=== PATIENT | female | born 1945 | race Caucasian/White ===

== ENCOUNTER 2018-01-07 09:43 | Emergency (ER) | payer MEDICARE ==
[~2018-01-07] VITALS: Ht 165.1 cm; Wt 86.2 kg
[~2018-01-07 09:43] MED LIST: ATOR10 PO; Aspir 8181 MG PO; Calci-Chew500 MG PO; Cholest Off450 MG PO; ERGO400; FENO145 PO; FISH1000; LEVSOD100 PO; LISHYD2012 PO; LISI5 PO; LOVA20 PO; Multiple Vitam1 EAC1; RANI150 PO; Synthroid112 MCG PO; Vitamin C1000 M1 PO
== END 2018-01-07 16:49 | disposition home or self-care (01) ==
LOC: ER 09:43
DX: T18.128A Food in esophagus causing other injury, initial encounter (principal); I10 Essential (primary) hypertension; E78.5 Hyperlipidemia, unspecified; Z79.899 Other long term (current) drug therapy; Z85.21 Personal history of malignant neoplasm of larynx; Z90.89 Acquired absence of other organs
CPT/HCPCS: 99283; J1430; J7030

== ENCOUNTER → 2018-11-10 | Outpatient (CLI) | payer MEDICARE | END | disposition home or self-care (01) | LOC: LAB 13:16 → LAB SHORT 13:16 | DX: R91.8 Other nonspecific abnormal finding of lung field (principal) | CPT/HCPCS: 87015; 87070; 87077; 87102; 87116; 87186; 87205; 87206 ==

== ENCOUNTER → 2018-11-11 | Outpatient (CLI) | payer MEDICARE | END | disposition home or self-care (01) | LOC: LAB 11:58 → LAB SHORT 11:58 | DX: R91.8 Other nonspecific abnormal finding of lung field (principal) | CPT/HCPCS: 87015; 87070; 87102; 87106; 87116; 87205; 87206 ==

== ENCOUNTER → 2018-11-12 | Outpatient (CLI) | payer MEDICARE | END | disposition home or self-care (01) | LOC: LAB 12:48 → LAB SHORT 12:48 | DX: R91.8 Other nonspecific abnormal finding of lung field (principal) | CPT/HCPCS: 87015; 87070; 87102; 87106; 87116; 87205; 87206 ==

== ENCOUNTER 2019-03-25 09:13 | Day surgery (SDC) | payer MEDICARE ==
--- NOTE | 2019-03-25 11:26 | NUR ---
ARRIVAL TO STEP, AWAKE, ALERT, NO C/O PAIN OR DISCOMFORT. BANDAID TO LEFT CHEST CDI. REPORT RECEIVED FROM KELSEY GRAY.O2 SATS AND VS WNL.
--- NOTE | 2019-03-25 13:20 | NUR ---
4265 KELSEY GRAY AT BEDSIDE GIVING D/C INSTRUCTIONS AFTER 1300 XRAY. IS TO RETURN TOMORROW MORNING FOR FOLLOW UP CHEST XRAY. DISCHARGE INSTRUCTIONS RE-ITERATED AND PATIENT VERBALIZED UNDERSTANDING. LEFT CHEST BANDAID IS CDI. O2 SATS AND VS ARE WNL. HOME WITH FAMILY
--- NOTE | 2019-03-27 14:46 | NUR ---
03/27/19 1446 Jenelle Gutierrez PROCEDURE EDITED FOR PURPOSES OF VERIFICATION.
== END 2019-03-25 13:15 | disposition home or self-care (01) ==
LOC: CT 09:13
DX: C34.12 Malignant neoplasm of upper lobe, left bronchus or lung (principal); Z87.891 Personal history of nicotine dependence
CPT/HCPCS: 32405; 71045; 77012; 88305

== ENCOUNTER 2019-05-15 09:45 | Day surgery (SDC) | payer MEDICARE ==
[~2019-05-15] VITALS: Ht 165.1 cm; Wt 88.0 kg
[~2019-05-15 09:45] MED LIST changes: +EUTHYROX100 MCG PO
--- NOTE | 2019-05-15 13:39 | NUR ---
LEFT RADIAL TR BAND SITE SOFT NON-TENDER WITH NO HEMATOMA AND NO PULSATILE BLEEDING. RIGHT GROIN SITE SOFT NON-TENDER WITH NO HEMATOMA AND NO PULSATILE BLEEDING AND INTACT DRESSING. PT DENIES ANY PAIN; CALL LIGHT IN REACH.
--- NOTE | 2019-05-15 14:06 | NUR ---
DR HINOJOSA IN ROOM TO SEE PT AND AWARE OF HTN.
--- NOTE | 2019-05-15 14:28 | NUR ---
9 CC OF AIR REMOVED OVER 15 MIN FROM NOW DEFLATED LEFT TR BAND; NO HEMATOMA, NO BLEEDING, SOFT AND NON-TENDER.
--- NOTE | 2019-05-15 14:37 | NUR ---
NO CHANGES TO DEFLATED LEFT TR BAND SITE.
--- NOTE | 2019-05-15 16:05 | NUR ---
AMBULATED TO THE BATHROOM. TOLERATED WELL. NO BLEEDING AT RIGHT GROIN. LEFT RADIAL WRIST WITH TR BAND INTACT. DRESSING FOR DISCHARE.
--- NOTE | 2019-05-15 16:15 | NUR ---
TR BAND REMOVED. NO BLEEDING AT SIGHT BUT BRUISED. SITE CLEANED. POLYMEM, IMMOBILIZER AND SLING APPLIED.IV REMOVED INTACT. 2X2, COBAN AND MANUAL PRESSURE APPLIED. DISCHARGE INSTRUCTIONS GIVEN WITH VERBAL AND WRITTEN UNDERSTANDING
--- NOTE | 2019-05-15 16:45 | NUR ---
DISCHARGED HOME VIA [facility].
== END 2019-05-15 16:45 | disposition home or self-care (01) ==
LOC: MHTC 09:45
PROC: B205YZZ Plain Radiography of Left Heart using Other Contrast (ICD-10-PCS; principal; 2019-05-15)
PROC: B201YZZ Plain Radiography of Multiple Coronary Arteries using Other Contrast (ICD-10-PCS; principal; 2019-05-15)
PROC: 4A023N7 Measurement of Cardiac Sampling and Pressure, Left Heart, Percutaneous Approach (ICD-10-PCS; principal; 2019-05-15)
DX: Z01.810 Encounter for preprocedural cardiovascular examination (principal); I11.0 Hypertensive heart disease with heart failure; I50.20 Unspecified systolic (congestive) heart failure; I25.10 Atherosclerotic heart disease of native coronary artery without angina pectoris; I25.82 Chronic total occlusion of coronary artery; I70.8 Atherosclerosis of other arteries; I71.4 Abdominal aortic aneurysm, without rupture; I70.203 Unspecified atherosclerosis of native arteries of extremities, bilateral legs; E11.9 Type 2 diabetes mellitus without complications; E78.5 Hyperlipidemia, unspecified; E03.9 Hypothyroidism, unspecified; C34.90 Malignant neoplasm of unspecified part of unspecified bronchus or lung; Z79.899 Other long term (current) drug therapy; Z87.891 Personal history of nicotine dependence
CPT/HCPCS: 76937; 85347; 93005; 93010; 93458; 99152; 99153; C1769; C1887; C1894; J1644; J2250; J3010; J7030; Q9967

== ENCOUNTER → 2019-08-18 | Outpatient (CLI) | payer MEDICARE ==
[2019-08-18 16:33] LABS: Alanine Aminotransfer (ALT/SGP 63 U/L (12-78); Albumin, Blood 3.6 g/dL (3.4-5.0); Albumin/Globulin Ratio 1.2 (0.8-1.8); Alk Phos 97 U/L (50-136); Anion Gap 8 mmol/L (6-16); Aspartate Aminotrans (AST/SGOT 31 U/L (12-37); Bilirubin, Total 0.6 mg/dL (0.1-1.0); Blood Urea Nitrogen 17 mg/dL (8-24); Bun/Creatinine Ratio 25.6 (12.0-20.0); CO2, Blood 24 mmol/L (21-32); Calcium, Blood 8.3 mg/dL (8.5-10.1); Chloride, Blood 107 mmol/L (98-108); Creatinine, Blood 0.66 mg/dL (0.40-1.00); Globulin, Blood 3.1 g/dL (2.2-4.0); Glomerular Filtration Rate >60 (60-); Glucose, Blood 110 mg/dL (70-99); Sodium, Blood 139 mmol/L (136-145); Total Protein, Blood 6.7 g/dL (6.4-8.2)
== END ==
LOC: LAB 15:11 → LAB SHORT 15:11
PROVIDERS: Registered Nurse Oncology
DX: C34.90 Malignant neoplasm of unspecified part of unspecified bronchus or lung (principal); C77.1 Secondary and unspecified malignant neoplasm of intrathoracic lymph nodes; R94.5 Abnormal results of liver function studies
CPT/HCPCS: 80053

== ENCOUNTER 2019-09-30 10:03 | Day surgery (SDC) | payer MEDICARE ==
[~2019-09-30 10:03] MED LIST changes: -ATOR10 PO; +ATOR80 PO
== END 2019-09-30 22:50 | disposition home or self-care (01) ==
LOC: MOI MAM 10:03
DX: R92.8 Other abnormal and inconclusive findings on diagnostic imaging of breast (principal); R92.1 Mammographic calcification found on diagnostic imaging of breast
CPT/HCPCS: 19081; 88305

== ENCOUNTER 2019-10-22 23:35 | Inpatient (IN) | payer MEDICARE ==
[~2019-10-22] VITALS: Ht 165.1 cm; Wt 76.6 kg
[2019-10-22 23:45] LABS: PCO2 Arterial 49.4 mmHg (35-45); PO2 Arterial 67.9 mmHg (80-100); pH Blood Arterial 7.23 (7.35-7.45)
[2019-10-23 00:25] LABS: BASOPHILS ABSOLUTE AUTO 0.19 K/mm3 (0.00-0.23); BASOPHILS PERCENT AUTO 1 % (0-2); EOSINOPHILS ABSOLUTE AUTO 0.79 K/mm3 (0.00-0.68); EOSINOPHILS PERCENT AUTO 5 % (0-6); Hemoglobin 9.8 g/dL (11.5-16.0); IMMATURE GRAN ABSOLUTE AUTO 0.07 K/mm3 (0.00-0.10); IMMATURE GRAN PERCENT AUTO 0 % (0-1); LYMPHOCYTES ABSOLUTE AUTO 7.13 K/mm3 (0.84-5.20); LYMPHOCYTES PERCENT AUTO 42 % (21-46); MONOCYTES ABSOLUTE AUTO 1.04 K/mm3 (0.16-1.47); MONOCYTES PERCENT AUTO 6 % (4-13); Mean Corpuscular HGB 28.3 pg (26.0-34.0); Mean Corpuscular HGB Conc 29.7 g/dL (31.5-36.5); Mean Corpuscular Volume 95 fL (80-100); Mean Platelet Volume 12.5 fL (9.1-12.4); NEUTROPHILS ABSOLUTE AUTO 7.95 K/mm3 (1.96-9.15); NEUTROPHILS PERCENT AUTO 46 % (41-73); Platelet Count 319 K/mm3 (150-400); RDW Coefficient Variation 17.9 % (11.7-14.2); Red Blood Cell Count 3.46 M/mm3 (3.80-5.20); White Blood Cell Count 17.17 K/mm3 (4.00-11.30)
[2019-10-23 00:41] LABS: Albumin, Blood 3.5 g/dL (3.4-5.0); Albumin/Globulin Ratio 0.9 (0.8-1.8); Bilirubin, Total 0.9 mg/dL (0.1-1.0); Bun/Creatinine Ratio 21.5 (12.0-20.0); Calcium, Blood 8.4 mg/dL (8.5-10.1); Creatinine, Blood 1.07 mg/dL (0.40-1.00); Globulin, Blood 3.7 g/dL (2.2-4.0); Total Protein, Blood 7.2 g/dL (6.4-8.2); Troponin I 0.027 ng/mL (0.000-0.040)
[2019-10-23 02:00] LABS: International Normalized Ratio 0.97; Prothrombin Time Results 10.4 Sec (9.7-11.5)
[2019-10-23 04:58] LABS: Source, Urine Catheter
[2019-10-23] MEDS ORDERED: ASPI81CH PO (05:06)
[2019-10-23 05:20] LABS: Appearance, Urine Clear (Clear); Bilirubin, Urine Neg (Neg); Blood, Urine Neg (Neg); Color, Urine Yellow (P-Yellow); Glucose Qualitative, Urine Neg (Neg); Ketones, Urine Neg (Neg); Leukocyte Esterase, Urine Neg (Neg); Nitrite, Urine Neg (Neg); Protein, Urine Neg (Neg); Urobilinogen, Urine NORM (Normal)
--- NOTE | 2019-10-23 06:20 | NUR ---
SHIFT SUMMARY PATIENT WAS VERY PLEASANT TO WORK WITH THIS MORNING. SHORTLY AFTER ARRIVING TO UNIT, BLOOD PRESSURE DROPPED TO 62/46, CONFIRMED WITH MANUAL CUFF. DR. LEÓN WAS PROMPTLY NOTIFIED, ARRIVED AT BEDSIDE TO PLACE CENTRAL LINE, LEVOPHED DRIP WAS STARTED. FARLEY CATH WAS PLACED AND LASIX DRIP STARTED. PT. REMAINS IN GREAT SPIRITS. ASSESSMENT IS CHARTED. VSS. WILL CONTINUE TO MONITOR.
--- NOTE | 2019-10-23 07:15 | NUR ---
ASSUMED CARE NOTE RECEIVED REPORT FROM ROSENDO HARDY. BEDSIDE ROUNDING DONE. PT RESTING IN BED, HOB ELEVATED 30 DEGREES. PT EASILY AROUSES TO VERBAL STIMULI, PLEASANT AND COOPERATIVE WITH CARE. PT WITH RIGHT GROIN CENTRAL LINE WITH LEVOPHED GTT RUNNING AT 2.5MCG/MIN AND TKO. VSS, SEE FLOWSHEET. TRACH TO VENTILATOR, SETTINGS: SPONTANEOUS WITH FIO2 50%. PT WITHOUT ANY COMPLAINTS. CALL LIGHT IN REACH. BEDSIDE TABLE WITH TABLET AND PHONE IN REACH. WILL CONT TO MONITOR PT.
--- NOTE | 2019-10-23 08:07 | NUR ---
DR OCASIO ROUNDS DR OCASIO UPDATED ON PT STATUS SINCE ARRIVAL TO ICU. PER DR OCASIO D/C LASIX GTT AND IVP LASIX. POSSIBLE PLAN TO DIURESE PT AFTER LEVOPHED GTT IS OFF. NO FURTHER CHANGES TO PLAN OF CARE AT THIS TIME. WILL CONT TO MONITOR PT.
[2019-10-23 08:33] LABS: Adenovirus Not Detected (NOT DETECT); Bordetella pertussis Not Detected (NOT DETECT); Chlamydophila pneumoniae Not Detected (NOT DETECT); Coronavirus 229E Not Detected (NOT DETECT); Coronavirus HKU1 Not Detected (NOT DETECT); Coronavirus NL63 Not Detected (NOT DETECT); Coronavirus OC43 Not Detected (NOT DETECT); Human Metapneumovirus Not Detected (NOT DETECT); Human Rhinovirus/Enterovirus Not Detected (NOT DETECT); Influenza A/2009-H1 Not Detected (NOT DETECT); Influenza A/H1 Not Detected (NOT DETECT); Influenza A/H3 Not Detected (NOT DETECT); Influenza B Not Detected (NOT DETECT); Mycoplasma pneumoniae Not Detected (NOT DETECT); Parainfluenza Virus 1 Not Detected (NOT DETECT); Parainfluenza Virus 2 Not Detected (NOT DETECT); Parainfluenza Virus 3 Not Detected (NOT DETECT); Parainfluenza Virus 4 Not Detected (NOT DETECT); Respiratory Syncytial Virus Not Detected (NOT DETECT)
[2019-10-23 08:40] LABS: BASOPHILS ABSOLUTE AUTO 0.02 K/mm3 (0.00-0.23); BASOPHILS PERCENT AUTO 0 % (0-2); EOSINOPHILS PERCENT AUTO 0 % (0-6); Hematocrit 28.3 % (33.0-51.0); Hemoglobin 8.7 g/dL (11.5-16.0); IMMATURE GRAN ABSOLUTE AUTO 0.07 K/mm3 (0.00-0.10); IMMATURE GRAN PERCENT AUTO 0 % (0-1); LYMPHOCYTES ABSOLUTE AUTO 0.65 K/mm3 (0.84-5.20); LYMPHOCYTES PERCENT AUTO 4 % (21-46); MONOCYTES ABSOLUTE AUTO 0.28 K/mm3 (0.16-1.47); MONOCYTES PERCENT AUTO 2 % (4-13); Mean Corpuscular HGB 28.2 pg (26.0-34.0); Mean Corpuscular HGB Conc 30.7 g/dL (31.5-36.5); Mean Corpuscular Volume 92 fL (80-100); Mean Platelet Volume 11.9 fL (9.1-12.4); NEUTROPHILS ABSOLUTE AUTO 16.51 K/mm3 (1.96-9.15); NEUTROPHILS PERCENT AUTO 94 % (41-73); Platelet Count 225 K/mm3 (150-400); RDW Coefficient Variation 17.4 % (11.7-14.2); RDW Standard Deviation 58.1 fL (35.1-46.3); Red Blood Cell Count 3.08 M/mm3 (3.80-5.20); White Blood Cell Count 17.53 K/mm3 (4.00-11.30)
[2019-10-23 08:52] LABS: Albumin, Blood 3.1 g/dL (3.4-5.0); Bilirubin, Total 0.7 mg/dL (0.1-1.0); Bun/Creatinine Ratio 18.3 (12.0-20.0); Creatinine, Blood 1.26 mg/dL (0.40-1.00); Globulin, Blood 3.2 g/dL (2.2-4.0); Potassium, Blood 3.9 mmol/L (3.5-5.5); Total Protein, Blood 6.3 g/dL (6.4-8.2)
[2019-10-23 09:06] LABS: Creatine Kinase MB 19.4 ng/mL (0.0-3.6); Creatine Kinase MB Index 6.2 (0.0-4.0)
--- NOTE | 2019-10-23 09:07 | NUR ---
DR PACHECO ROUNDS DR PACHECO ROUNDED, UPDATED ON PT STATUS SINCE ARRIVAL TO ICU. PER DR PACHECO PLAN TO START PT ON LASIX 40MG IVP Q8H. LEVOPHED GTT TO REMAIN RUNNING EXPECTED FOR BP TO DROP D/T LASIX ADMINISTRATION. PT TO HAVE ECHO DONE TODAY. NO FURTHER ORDERS AT THIS TIME. WILL CONT TO MONITOR PT.
--- NOTE | 2019-10-23 09:46 | NUR ---
ECHO SUPERVISOR RIPRAP PLACING AT BEDSIDE TO PERFORM ECHOCARDIOGRAM AT THIS TIME. PT REPOSITIONED TO LEFT SIDE USING PILLOWS FOR THIS.
--- NOTE | 2019-10-23 09:47 | NUR ---
ST ELEVATION NOTED ST ELEVATION NOTED ON MONITOR. DR PACHECO AWARE. PT WITH CARDIAC HX OF STENT EARLIER IN YEAR AT WHICH TIME PT WAS NOTED TO HAVE LESION ON CIRCUMFLEX BUT D/T PT'S CANCER SURGERY REPAIR OF THIS WAS POSTPONED. ORDER FOR STAT EKG. EKG DONE AND SHOWN TO DR PACHECO ALONG WITH EKG DONE IN ER YESTERDAY EVENING. ORDERS RECEIVED FOR ENOXAPARIN 1MG/KG Q12H. THIS ORDER PLACED IN EMR AND EXISTING ORDER FOR ENOXAPARIN 40MG DAILY D/C. ECHO TAKING PLACE CURRENTLY. NO FURTHER ORDERS AT THIS TIME. WILL CONT TO MONITOR PT.
--- NOTE | 2019-10-23 10:15 | NUR ---
ECHO DONE ELECTRICAL HARDWARE ENGINEER COMPLETED ECHO AT THIS TIME. AWAITING RESULTS.
--- NOTE | 2019-10-23 10:55 | NUR ---
TRACH SUCTION PT REQUESTING TO BE SUCTIONED. SUCTIONING TRACH PRODUCED SMALL AMOUNT RED FROTHY SECRETIONS. PT DENIES ANY FURTHER NEEDS. CALL LIGHT IN REACH. WILL CONT TO MONITOR PT.
--- NOTE | 2019-10-23 12:07 | NUR ---
DR PACHECO ROUNDS PER DR PACHECO PT TO TRY PO ASA AND STATIN, AWAITING ORDER FOR STATIN. ORDER FOR CARDIOLOGY CONSULT, REASON NSTEMI. NO FURTHER CHANGES TO PLAN OF CARE AT THIS TIME. WILL CONT TO MONITOR PT.
--- NOTE | 2019-10-23 14:21 | NUR ---
DR BRANDT ROUNDS DR RIKKI ALVARADO, SHAMAR, BARIATRIC SURGEON, PRESENT. DR BRANDT UPDATED ON PT STATUS. PER SHAMAR, ORDERS RECEIVED FOR HEPARIN GTT WITHOUT BOLUS, ASA 81MG PO NOW, AND PLAVIX 300MG PO NOW. PT ALREADY RECEIVED ASA THIS MORNING, NO ADDITIONAL ASA TO BE GIVEN. PT TO REMAIN NPO EXCEPT FOR MEDS. NO FURTHER CHANGES TO PLAN OF CARE AT THIS TIME. SHAMAR PLACED ORDERS REQUESTED BY DR BRANDT.
--- NOTE | 2019-10-23 16:29 | NUR ---
HEPARIN GTT PER PHARMACY HEPARIN GTT TO BE STARTED AT 2000 PER PHARMACY DOSING. THIS IS DUE TO PT HAVING RECEIVED 80MG LOVENOX ORDERED THIS MORNING.
--- NOTE | 2019-10-23 17:08 | NUR ---
CALL FROM DR BRANDT PER DR BRANDT ORDER FOR METOPROLOL TO BE D/C PT ON LEVOPHED GTT. ORDER D/C INSTRUCTED.
--- NOTE | 2019-10-23 17:55 | NUR ---
DR BRANDT REQUEST PT WITH VERY POOR CARDIAC FUNCTION. PER DR BRANDT, NOC RN TO CALL IF ANY HEMODYNAMIC OR ELECTRIC INSTABILITY ARE NOTED. INFORMED DR BRANDT THAT THIS WOULD BE RELAYED IN REPORT.
--- NOTE | 2019-10-23 18:00 | NUR ---
SHIFT SUMMARY PT RESTING IN BED, HOB ELEVATED 30 DEGREES. PT EASILY AROUSABLE, ALERT AND ORIENTED WHEN AWAKE, PLEASANT AND COOPERATIVE WITH CARE. PT CONTINUES TO DENY ANY PAIN OR DISCOMFORT. LS IMPROVING, REMAIN DIMINISHED IN BASES. PT REMAINS WITH TRACH TO VENTILATOR ON SPONTANEOUS WITH PEEP 5 AND FIO2 50%. PT CONTINUES TO DENY ANY SOB. SUCTIONING OCCASIONALLY, PRODUCING SMALL AMOUNTS RED FROTHY SECRETIONS. BP STABLE ON LEVOPHED, TITRATED TO EFFECT. PT CONTINUES TO DENY ANY CHEST PAIN/PRESSURE/PALPITATIONS. HR IN 80-90S. DR BRANDT CONSULTED D/T ELEVATED TROPONINS AND ABNORMAL EKG, PLAN FOR POSSIBLE INTERVENTION TOMORROW, PT TO REMAIN NPO. SEE FLOWSHEET FOR VS. ABD NORMAL PER PT, SOFT, NONTENDER. BT X4, HYPOACTIVE. NO BM. FARLEY CATHETER REMAINS PATENT, DRAINING TO GRAVITY. SKIN OVERALL C/D/I, SCATTERED BRUISING TO BUE. PIV TO KARSON PULLED D/T IT WAS PAINFUL WITH FLUSH LATER IN SHIFT. CENTRAL LINE TO RIGHT GROIN WNL. NS TKO X2. PT ADJUSTS POSITION IN BED INDEPENDENTLY, REFUSED REPOSITIONING FROM SIDE TO SIDE USING PILLOWS, ALTHOUGH AGREED TO HAVING PILLOW UNDER BLE FOR PRESSURE ALLEVIATION. ECHO DONE. NO ACUTE CHANGES THIS SHIFT. BED IN LOWEST POSITION, UPPER SIDE RAILS RAISED, CALL LIGHT IN REACH. BEDSIDE TABLE IN REACH. WILL CONT TO MONITOR PT.
[2019-10-23 18:17] LABS: Creatine Kinase MB 13.9 ng/mL (0.0-3.6)
--- NOTE | 2019-10-23 19:09 | NUR ---
REPORT REPORT GIVEN TO ROSENDO HARDY.
[2019-10-24 02:32] LABS: BASOPHILS ABSOLUTE AUTO 0.05 K/mm3 (0.00-0.23); BASOPHILS PERCENT AUTO 0 % (0-2); EOSINOPHILS ABSOLUTE AUTO 0.01 K/mm3 (0.00-0.68); EOSINOPHILS PERCENT AUTO 0 % (0-6); Hematocrit 27.3 % (33.0-51.0); Hemoglobin 8.6 g/dL (11.5-16.0); IMMATURE GRAN ABSOLUTE AUTO 0.06 K/mm3 (0.00-0.10); IMMATURE GRAN PERCENT AUTO 0 % (0-1); LYMPHOCYTES ABSOLUTE AUTO 1.63 K/mm3 (0.84-5.20); LYMPHOCYTES PERCENT AUTO 12 % (21-46); MONOCYTES ABSOLUTE AUTO 1.58 K/mm3 (0.16-1.47); MONOCYTES PERCENT AUTO 11 % (4-13); Mean Corpuscular HGB 28.4 pg (26.0-34.0); Mean Corpuscular HGB Conc 31.5 g/dL (31.5-36.5); Mean Corpuscular Volume 90 fL (80-100); Mean Platelet Volume 11.6 fL (9.1-12.4); NEUTROPHILS PERCENT AUTO 76 % (41-73); Platelet Count 241 K/mm3 (150-400); RDW Coefficient Variation 17.6 % (11.7-14.2); RDW Standard Deviation 57.9 fL (35.1-46.3); Red Blood Cell Count 3.03 M/mm3 (3.80-5.20); White Blood Cell Count 14.03 K/mm3 (4.00-11.30)
[2019-10-24 02:47] LABS: Bun/Creatinine Ratio 18.8 (12.0-20.0); Calcium, Blood 8.3 mg/dL (8.5-10.1); Creatinine, Blood 1.44 mg/dL (0.40-1.00); Magnesium, Blood 1.7 mg/dL (1.6-2.4); Potassium, Blood 3.3 mmol/L (3.5-5.5)
--- NOTE | 2019-10-24 05:49 | NUR ---
SHIFT SUMMARY PATIENT HAS SLEPT WELL THROUGH NIGHT. NO ACUTE CHANGES TO NOTE OVERNIGHT. TOLERATING VENTILATOR WELL, LUNG SOUNDS MARGINALLY IMPROVED, HOWEVER WERE NOT TERRIBLY COARSE AT BEGIN OF SHIFT. AM CURRENTLY REPLACING ELECTROLYTES, ACCIDENTALLY ORDERED MAGNESIUM A DAILY DOSE, WILL DISCONTINUE FUTURE ORDERS PATIENT IS RECEIVING ONE DOSE OF [address] LEÓN. NO COMPLAINTS OF CHEST PAIN, DIFFICULTY BREATHING, SHORTNESS OF BREATH. VSS. ASSESSMENT IS CHARTED. WILL CONTINUE TO MONITOR.
--- NOTE | 2019-10-24 11:00 | NUR ---
UPDATE PT RESTING IN BED. DR. HOWELL CAME IN TO SEE PT THIS AM AND WANTS BE TO BE ON TRACH COLLAR. RT SET PT UP AND PT HAS BEEN TOLERATING WELL. LEVOPHED WAS TITRATED OFF AT [address] KIMBALL WAS IN THIS AM AND SAYS THE PT WILL GO TO SPECIAL EDUCATION CLASSROOM AIDE ON SATURDAY. THE CREATININE NEEDS TO IMPROVE BEFORE THEY TAKE HER FOR PROBABLE INTERVENTION. PT IS ON HEPARIN PER PHARMACY. DENIES CP OR PRESSURE, N/V AND SOB.
--- NOTE | 2019-10-24 16:00 | NUR ---
PT UP TO CHAIR. TOLERATES WELL WITH 1 PERSON ASSIST. NO SIGN OF DISTRESS. CALL LIGHT IN REACH.
--- NOTE | 2019-10-24 17:50 | NUR ---
SUMMARY PT DID WELL TODAY. WAS ABLE TO MOVE FROM VENT TO TRACH TO TRACH COLLAR. SHE HAS TOLERATED TRACH COLLAR WELL. LEVOPHED WAS TITRATED OFF THIS AM. NEGATIVE ON I&O. UP TO CHAIR WITHOUT ANY DIFFICULTIES. DOES WELL WITH ONE PERSON ASSIST. DR. HOWELL CAME IN AND CHECKED ON PT AGAIN. NO NEW ORDERS. CALL LIGHT IN REACH.
[2019-10-25 01:33] LABS: BASOPHILS ABSOLUTE AUTO 0.08 K/mm3 (0.00-0.23); BASOPHILS PERCENT AUTO 1 % (0-2); EOSINOPHILS ABSOLUTE AUTO 0.15 K/mm3 (0.00-0.68); EOSINOPHILS PERCENT AUTO 1 % (0-6); Hematocrit 27.1 % (33.0-51.0); Hemoglobin 8.5 g/dL (11.5-16.0); IMMATURE GRAN ABSOLUTE AUTO 0.02 K/mm3 (0.00-0.10); IMMATURE GRAN PERCENT AUTO 0 % (0-1); LYMPHOCYTES ABSOLUTE AUTO 1.27 K/mm3 (0.84-5.20); LYMPHOCYTES PERCENT AUTO 11 % (21-46); MONOCYTES ABSOLUTE AUTO 0.75 K/mm3 (0.16-1.47); MONOCYTES PERCENT AUTO 7 % (4-13); Mean Corpuscular HGB 28.5 pg (26.0-34.0); Mean Corpuscular HGB Conc 31.4 g/dL (31.5-36.5); Mean Corpuscular Volume 91 fL (80-100); Mean Platelet Volume 11.8 fL (9.1-12.4); NEUTROPHILS ABSOLUTE AUTO 9.31 K/mm3 (1.96-9.15); NEUTROPHILS PERCENT AUTO 80 % (41-73); Platelet Count 212 K/mm3 (150-400); RDW Coefficient Variation 17.5 % (11.7-14.2); RDW Standard Deviation 58.7 fL (35.1-46.3); Red Blood Cell Count 2.98 M/mm3 (3.80-5.20); White Blood Cell Count 11.58 K/mm3 (4.00-11.30)
[2019-10-25 01:48] LABS: Bun/Creatinine Ratio 20.9 (12.0-20.0); Calcium, Blood 8.3 mg/dL (8.5-10.1); Creatinine, Blood 1.34 mg/dL (0.40-1.00); Potassium, Blood 2.8 mmol/L (3.5-5.5)
--- NOTE | 2019-10-25 05:18 | NUR ---
SHIFT SUMMARY PATIENT SLEPT WELL THROUGH NIGHT. WAS MOSTLY INDEPENDENT, ABLE TO MOVE SELF IN BED, PERFORM CATHETER CARE WHEN GIVEN SUPPLIES, DRINKING WELL. NO C/O PAIN, NO DIFFICULTY BREATHING, CALLS WHEN REQUIRING SUCTIONING. HEPARIN DRIP ADJUSTED PER PHARMACY. VSS. WILL CONTINUE TO MONITOR.
--- NOTE | 2019-10-25 10:41 | NUR ---
DR. HOWELL IN TO SEE PT. HE IS OK WITH CHANGING STATUS TO PCU BUT WOULD LIKE PT TO STAY IN ICU ROOM SINCE SHE HAS AN ANGIOGRAM TOMORROW THAT MIGHT BE COMPLICATED. RUBBER CURER NOTIFIED.
[2019-10-25 14:20] LABS: Stool Occult Blood Guaiac 1 Neg (Neg)
--- NOTE | 2019-10-25 17:58 | NUR ---
SUMMARY PT WAS UP TO THE CHAIR MOST OF THE DAY. ONE PERSON ASSIST. PT IS GETTING STRONGER. PT IS ON RA. RT SET PT UP WITH A FOAM TYPE COVER THAT PT CAN STILL BREATHE THROUGH. PT DOES NOT LIKE IT OPEN TO AIR. SPO2 96%. EATING WELL. OFF HEPARIN TODAY PER DR. KIMBALL AND PUT ON SQ HEPARIN.USES CALL LIGHT APPROPRIATELY. NO SIGN OF DISTESS.
[2019-10-26 03:58] LABS: BASOPHILS ABSOLUTE AUTO 0.06 K/mm3 (0.00-0.23); BASOPHILS PERCENT AUTO 1 % (0-2); EOSINOPHILS ABSOLUTE AUTO 0.37 K/mm3 (0.00-0.68); EOSINOPHILS PERCENT AUTO 5 % (0-6); Hemoglobin 8.7 g/dL (11.5-16.0); IMMATURE GRAN ABSOLUTE AUTO 0.02 K/mm3 (0.00-0.10); IMMATURE GRAN PERCENT AUTO 0 % (0-1); LYMPHOCYTES ABSOLUTE AUTO 1.66 K/mm3 (0.84-5.20); LYMPHOCYTES PERCENT AUTO 21 % (21-46); MONOCYTES ABSOLUTE AUTO 0.65 K/mm3 (0.16-1.47); MONOCYTES PERCENT AUTO 8 % (4-13); Mean Corpuscular HGB 28.4 pg (26.0-34.0); Mean Corpuscular HGB Conc 31.1 g/dL (31.5-36.5); Mean Corpuscular Volume 92 fL (80-100); Mean Platelet Volume 11.6 fL (9.1-12.4); NEUTROPHILS ABSOLUTE AUTO 5.32 K/mm3 (1.96-9.15); NEUTROPHILS PERCENT AUTO 66 % (41-73); Platelet Count 222 K/mm3 (150-400); RDW Coefficient Variation 16.9 % (11.7-14.2); RDW Standard Deviation 56.9 fL (35.1-46.3); Red Blood Cell Count 3.06 M/mm3 (3.80-5.20); White Blood Cell Count 8.08 K/mm3 (4.00-11.30)
[2019-10-26 04:13] LABS: Bun/Creatinine Ratio 20.3 (12.0-20.0); Calcium, Blood 8.7 mg/dL (8.5-10.1); Creatinine, Blood 1.18 mg/dL (0.40-1.00); Magnesium, Blood 1.9 mg/dL (1.6-2.4); Potassium, Blood 3.7 mmol/L (3.5-5.5)
--- NOTE | 2019-10-26 06:13 | NUR ---
SHIFT SUMMARY PATIENT HAS SLEPT WELL THROUGH NIGHT. NO ACUTE CHANGES TO NOTE TONIGHT. ASSESSMENT IS CHARTED. VSS. NO C/O PAIN. WILL CONTINUE TO MONITOR.
--- NOTE | 2019-10-26 19:15 | NUR ---
REPORT FROM VERÓNICA ROBBINS. ASSUMED PT CARE. PT ALERT AND ORIENTED. ABLE TO COMMUNICATED NEEDS AND USE CALL LIGHT. PT ON ROOM AIR, TELE SHOWS NS 90'S PT HAS TRACH WITH HUMIDIFIED AIR AND IN LINE SUCTION, PT SITTING IN CHAIR AT THIS TIME WITH CALL LIGHT. PT DENIES PAIN. PATENT FARLEY DRAINING YELLOW URINE. VSS. QUAD LUMEN CENTRAL LINE TO RIGHT GROIN NOTED, DRESSING C/D/I. NO MEDS INFUSING AT THIS TIME. PT PLEASANT. DENIES NEEDS. SEE FULL ASSESSMENT.
--- NOTE | 2019-10-26 19:16 | NUR ---
EDIT TO PREVIOUS NOTE. PT HAS 26%FIO2 TO TRACH.
--- NOTE | 2019-10-26 19:37 | NUR ---
SUMMARY Pt PCU status. A&O x 4. Answers questions. Follows commands. Communicates needs either by mouthing words or writing requests. Pt on trach T piece with 26% FiO2. In-line suction catheter in place. Pt SR per monitor. BP stable. Denies chest pain. Initially NPO as pt was suspected to be having angiogram today, however during late morning, solar lab technician staff stated this would not be happening today. Dr Euceda aware. Dr Reyes states she will be in to see pt later this evening, as cardiology has not yet rounded on patient today. Pt sat up in chair for majority of shift and remains in chair at this time. This RN offered to assist pt back to bed, however pt declined and stated she would like to remain in the chair at this time. Pt one person assist OOB. Uses bedside commode. Had BM today. Pt also has leal catheter in place for strict measurement of I&O. Report given to oncoming RN to assume care, Yaakov.
--- NOTE | 2019-10-26 20:45 | NUR ---
PROVIDER VISIT DR LYNN TO ROOM. PLAN FOR ANGIO TOMORROW. INSTRUCTED TO KEEP PT NPO.
--- NOTE | 2019-10-27 00:18 | NUR ---
PT ASKED TO BE SUCTIONED. INLINE SUCTIONING DONE, LARGE THICK GLOB COUGHED UP BY PT, PT UNABLE TO CLEAR. RESP CALLED. RESP AT BEDSIDE FOR TRACH REPLACEMET AND SUCTIONING.
[2019-10-27 04:52] LABS: BASOPHILS ABSOLUTE AUTO 0.07 K/mm3 (0.00-0.23); BASOPHILS PERCENT AUTO 1 % (0-2); EOSINOPHILS ABSOLUTE AUTO 0.77 K/mm3 (0.00-0.68); EOSINOPHILS PERCENT AUTO 8 % (0-6); Hematocrit 28.8 % (33.0-51.0); IMMATURE GRAN ABSOLUTE AUTO 0.03 K/mm3 (0.00-0.10); IMMATURE GRAN PERCENT AUTO 0 % (0-1); LYMPHOCYTES ABSOLUTE AUTO 1.93 K/mm3 (0.84-5.20); LYMPHOCYTES PERCENT AUTO 20 % (21-46); MONOCYTES ABSOLUTE AUTO 0.76 K/mm3 (0.16-1.47); MONOCYTES PERCENT AUTO 8 % (4-13); Mean Corpuscular HGB 28.4 pg (26.0-34.0); Mean Corpuscular HGB Conc 31.3 g/dL (31.5-36.5); Mean Corpuscular Volume 91 fL (80-100); Mean Platelet Volume 11.1 fL (9.1-12.4); NEUTROPHILS ABSOLUTE AUTO 5.95 K/mm3 (1.96-9.15); NEUTROPHILS PERCENT AUTO 63 % (41-73); Platelet Count 222 K/mm3 (150-400); RDW Coefficient Variation 16.8 % (11.7-14.2); RDW Standard Deviation 56.2 fL (35.1-46.3); Red Blood Cell Count 3.17 M/mm3 (3.80-5.20); White Blood Cell Count 9.51 K/mm3 (4.00-11.30)
[2019-10-27 05:07] LABS: Bun/Creatinine Ratio 24.4 (12.0-20.0); Calcium, Blood 8.7 mg/dL (8.5-10.1); Creatinine, Blood 1.27 mg/dL (0.40-1.00); Potassium, Blood 3.7 mmol/L (3.5-5.5)
--- NOTE | 2019-10-27 06:46 | NUR ---
SHIFT SUMMARY PT HAD WONDERFUL EVENING AND SLEPT WELL. PT VSS STABLE THROUGHOUT SHIFT. PT REMAINED ALERT AND ORIENTED. PT REMINGTON PO WELL. PT APPRECIATES BEING UP IN CHAIR. PT ABLE TO COMMUNICATE NEEDS AND USE CALL LIGHT APPROPRIATELY. PT NEEDED SUCTIONING MULT TIMES THROUGHOUT SHIFT AND SECRETIONS NOTED TO BE VERY THICK AND BLOODY. PT HAS NO COMPLAINTS OF PAIN. FARLEY PATENT AND DRAINING CLEAR YELLOW URINE. PT HAS QUAD LUMEN PICC TO RIGHT GROIN AREA. CAPS CHANGED THIS AM WITH LAB DRAW. SITE CLEAN AND DRY. DRESSING INTACT. PT HAS NO SWELLING OR TENDERNESS. RESP CHANGED TRACH THIS EVENING. TRACH COLLAR WITH INLINE SUCTION AVAIL. PT SKIN INTACT. WILL CONTINUE TO MONITOR AND REPORT TO DAY SHIFT.
--- NOTE | 2019-10-27 07:40 | NUR ---
ASSUMED CARE RECIEVED REPORT FROM OLIVER RN. PT IS LYING IN BED ASLEEP. SHE HAS A 6.0 CUFFED SHILEY TRACH WITH A HUMIDITY COLLAR AROUND IT. SHE HAS A SINUS RHYTHM WITH A LBBB. SHE HAS A PATENT FARLEY DRAINING LIGHT YELLOW URINE. BED LOW AND LOCKED. CALL LIGHT WITHIN REACH.
--- NOTE | 2019-10-27 18:17 | NUR ---
SHIFT SUMMARY NOT MAJOR EVENTS THROUGHOUT DAY. HAS DENIED CP, SOB, NAUSEA, AND N/T. REMAINS ON ROOM AIR, VIA 6.0 SHILEY TRACH (CUFFED, NONFENESTRATED) WITH COLLAR. SHE HAS SPENT A GOOD PORTION OF THE DAY IN THE CHAIR. SHE IS INDEPENDENT FOR THE MOST PART, JUST NEEDS ASSISTANCE WITH LINES, CHORDS, AND TUBES. SHE ATTEMPTS TO COUGH THROUGH HER TRACH INTO TISSUES, BUT SOMETIMES NEEDS HELPS WITH SUCTIONING. I HAVE TRIED A FEW TIMES, BUT HAVEN'T GOT MUCH SUCTIONED. SHE IS GOOD ABOUT COMMUNICATING HER NEEDS VIA HER iPAD. SHE WILL BE NPO AFTER MIDNIGHT FOR ANGIO IN THE MORNING (HOPEFULLY). SHE IS IN GOOD SPIRITS AND HASN'T REQUIRED MUCH TODAY. SHE CURRENTLY REMAINS IN THE CHAIR, CALL LIGHT WITHIN REACH.
[2019-10-28 03:44] LABS: Hematocrit 28.5 % (33.0-51.0); Hemoglobin 8.8 g/dL (11.5-16.0); Mean Corpuscular HGB Conc 30.9 g/dL (31.5-36.5); Mean Corpuscular Volume 91 fL (80-100); Mean Platelet Volume 11.7 fL (9.1-12.4); Platelet Count 229 K/mm3 (150-400); RDW Coefficient Variation 16.5 % (11.7-14.2); RDW Standard Deviation 55.3 fL (35.1-46.3); Red Blood Cell Count 3.14 M/mm3 (3.80-5.20); White Blood Cell Count 8.82 K/mm3 (4.00-11.30)
[2019-10-28 04:01] LABS: Bun/Creatinine Ratio 26.9 (12.0-20.0); Calcium, Blood 8.5 mg/dL (8.5-10.1); Creatinine, Blood 1.19 mg/dL (0.40-1.00); Potassium, Blood 3.4 mmol/L (3.5-5.5)
--- NOTE | 2019-10-28 04:53 | NUR ---
PROVIDER UPDATE NOTIFIED PROVIDER OF POTASSIUM OF 3.4. TORB FOR 40 MEQ KCL IV ONCE.
--- NOTE | 2019-10-28 05:54 | NUR ---
END OF SHIFT SUMMARY PATIENT INTACT NEUROLOGICALLY. COMMUNICATES WITH WRITING PAD. LUNGS CLEAR ON ROOM AIR WITH HUMIDIFIED TRACH COLLAR. NSR WITH BBB. BP STABLE. NPO OF MIDNIGHT. FARLEY CATHETER IN PLACE. OUTPUT ADEQUATE. SKIN INTACT. CENTRAL LINE AND PIV X [address] POTASSIUM REPLACED THIS AM. ROAD CONDUCTOR PROCEDURE PLANNED FOR TODAY.
--- NOTE | 2019-10-28 07:42 | NUR ---
PT SITTING UP IN BED. CAN POSITION SELF IN BED. DR. HINOJOSA CAME IN TO SEE PT. PLAN IS TO TAKE HER TO CORPORATE ETHICS OFFICER THIS AM. DR. HINOJOSA OKAY'D MEDS TO BE GIVEN PO AND HEPARIN SQ. NO REQUESTS OR COMPLAINTS FROM PT. CALL LIGHT IN REACH.
--- NOTE | 2019-10-28 08:15 | NUR ---
FERTILIZER MIXER RN X2 HERE TO TAKE PT FOR PROCEDURE VIA BED. NO SIGN OF DISTRESS.
--- NOTE | 2019-10-28 09:53 | NUR ---
PT BACK TO ROOM FROM TRACK FITTER. SHEATH IN PLACE TO L GROIN. PT EDUCATED ABOUT GROIN PRECAUTIONS, NO FLEXION OF LEGS AND TO KEEP HEAD DOWN ON PILLOW. PT IS VERY COMPLIANT WITH DIRECTIONS. WILL PULL THE SHEATH.
[2019-10-28 11:36] LABS: Hematocrit 20.9 % (33.0-51.0); Hemoglobin 6.5 g/dL (11.5-16.0)
--- NOTE | 2019-10-28 12:00 | NUR ---
UPDATE AT 1100 SHEATH TO L GROIN WAS REMOVED AND MANUAL PRESSURE WAS HELD. AT 4 MINUTES IN TO MANUAL PRESSURE RN NOTICED A HEMATOMA STARTING IN PUBIS AREA UNDER THE PUNCTURE SITE. CALLED FOR ASSISTANCE, RN X4 AND DR. ROBIN- SUSTAINABLE DESIGN CONSULTANT CAME TO BEDSIDE. ABLE TO GET HEMATOMA STOPPED. NOW GROIN IS SOFT EXCEPT FOR QUARTER SIZE SPOT RIGHT UNDER PUNCTURE AREA. DOPPLER PULSES FOUND IN PEDAL AND PT. BP DROPPED FOR A SMALL AMT OF TIME BUT RECOVERED QUICKLY. DR. ROBIN ORDERED 2 UNITS OF PRBC'S STAT FOR DROP IN H&H WELL. DR. SESAY WAS UPDATED AND HAVE A CALL OUT TO FURTHER UPDATE HER. PT DENIES CP OR PRESSURE OR ANY BACK PAIN. EDUCATED ABOUT S/S OF RETROPEROTINEAL BLEED. CLEAR OCCLUSIVE DRESSING PLACED WITH FEMI UNDER DRESSING. NO BLOOD COMING THROUGH ON DRESSING. BP STABLIZED. IVF STOPPED PER DR. ROBIN DUE TO RISK OF FLUID OVERLOAD.
--- NOTE | 2019-10-28 12:51 | NUR ---
PT LAYING FLAT. US BEING DONE AND 1ST UNIT OF PRBC'S TRANSFUSING NOW. STAYING AT BEDSIDE TO MONITOR R GROIN SITE. DR. HINOJOSA IN TO SEE PT AND CHECKED SITE WELL. SMALL HEMATOMA HAS IMPROVED WELL.
--- NOTE | 2019-10-28 18:02 | NUR ---
SUMMARY PT RESTING IN BED. HAD AN ANGIOGRAM TODAY WITHOUT INTERVENTION. PT CAME FROM OFFICE ADMINISTRATION WITH SHEATH IN PLACE. ABLE TO PULL SHEATH IN ICU. PT ENDED UP WITH LARGE HEMATOMA ALMOST IMMEDIATELY. THAT WAS FROM L GROIN ACCESS SITE THROUGH PUBIS AREA INTO R GROIN. WAS ABLE TO STOP BLEEDING WITH ASSISTANCE FROM SEVERAL RN'S AND SITE WAS STABLE 23 MINUTES AFTER INITIAL START OF MANUAL PRESSURE. PT GOT 2 UNITS OF PRBC'S. US WAS DONE TO R/O ANEURYSM. CLEAR OCCLUSIVE DRESSING WAS APPLIED TO SITE WITH FEMI DRESSING. NOW SITE IS SOFT AND NON TENDER ACROSS ABD. THERE IS NO LONGER A HARD LUMP UNDER DRESSING. HIP INTO BACK IS SOFT AND NON TENDER. BP HAS BEEN STABLE. H&H TO BE RECHECKED AT 1999. PEDAL PULSES ARE PALPABLE. PT WAS ABLE TO SIT HOB UP FOR DINNER AND SITE IS STILL STABLE. PT IS VERY COMPLIANT WITH GROIN SITE PRECAUTIONS. HAS TRACH THAT IS CONNECTED TO TRACH COLLAR FOR HUMIDITY. INNER CANNULA CHANGED TODAY PER PT REQUEST. GOT A PLUG OUT THIS AFTERNOON OF THICK YELLOW SPUTUM WITH A TINGE OF PINK. SPO2 IS 95% AND IS ON L TOE DUE TO L GROIN SITE. NO SIGN OF DISTRESS AT THIS TIME. USES CALL LIGHT APPROPRIATELY AND ABLE TO EITHER MOUTH WORDS OR USES TABLET TO WRITE NEEDS DOWN.
--- NOTE | 2019-10-28 20:22 | NUR ---
PROVIDER UPDATE CLARIFIED ORDERS WITH DR. HINOJOSA REGARDING SUBQ HEPARIN THIS EVENING. OKAY TO HOLD TONIGHT'S DOSE. UPDATED PROVIDER ON PATIENT STATUS. SBP IN THE 90S. RECHECK H&H SENT. AWAITING RESULTS. PATIENT IS ASYMPTOMATIC WITH LOW BP. DENIES DIZZINESS. ANGIOGRAM SITE SOFT WITH A CLEAN AND DRY DRESSING WITH NO NEW DRAINAGE.
[2019-10-28 20:39] LABS: Hematocrit 34.7 % (33.0-51.0); Hemoglobin 11.3 g/dL (11.5-16.0)
--- NOTE | 2019-10-28 20:58 | NUR ---
ASSUMING CARE - 1900 REPORT RECEIVED ON PATIENT. BEDSIDE COMPLEX VASCULAR ASSESSMENT COMPLETE WITH OFFGOING RN. GROIN SITE IS SOFT. DRESSING IS CLEAN, DRY, AND INTACT. PULSES PALPABLE IN BILATERAL LOWER EXTREMITIES. PATIENT ON BEDSIDE MONITOR IN NSR WITH A BBB. FARLEY CATHETER PATENT AND DRAINING. PATIENT HAS CALL LIGHT WITHIN REACH. NO NEEDS AT THIS TIME. SCHEDULED 1999 H&H LAB TO BE DRAWN.
[2019-10-29 07:42] LABS: BASOPHILS ABSOLUTE AUTO 0.09 K/mm3 (0.00-0.23); BASOPHILS PERCENT AUTO 1 % (0-2); EOSINOPHILS ABSOLUTE AUTO 0.64 K/mm3 (0.00-0.68); EOSINOPHILS PERCENT AUTO 7 % (0-6); Hemoglobin 10.9 g/dL (11.5-16.0); IMMATURE GRAN ABSOLUTE AUTO 0.03 K/mm3 (0.00-0.10); IMMATURE GRAN PERCENT AUTO 0 % (0-1); LYMPHOCYTES ABSOLUTE AUTO 1.61 K/mm3 (0.84-5.20); LYMPHOCYTES PERCENT AUTO 16 % (21-46); MONOCYTES ABSOLUTE AUTO 0.96 K/mm3 (0.16-1.47); MONOCYTES PERCENT AUTO 10 % (4-13); Mean Corpuscular HGB 28.5 pg (26.0-34.0); Mean Corpuscular HGB Conc 32.1 g/dL (31.5-36.5); Mean Corpuscular Volume 89 fL (80-100); Mean Platelet Volume 11.7 fL (9.1-12.4); NEUTROPHILS ABSOLUTE AUTO 6.59 K/mm3 (1.96-9.15); NEUTROPHILS PERCENT AUTO 66 % (41-73); Platelet Count 228 K/mm3 (150-400); RDW Coefficient Variation 16.6 % (11.7-14.2); RDW Standard Deviation 54.5 fL (35.1-46.3); Red Blood Cell Count 3.82 M/mm3 (3.80-5.20); White Blood Cell Count 9.92 K/mm3 (4.00-11.30)
[2019-10-29 08:00] LABS: Bun/Creatinine Ratio 28.9 (12.0-20.0); Calcium, Blood 8.5 mg/dL (8.5-10.1); Creatinine, Blood 1.14 mg/dL (0.40-1.00); Potassium, Blood 3.7 mmol/L (3.5-5.5)
--- NOTE | 2019-10-29 08:59 | NUR ---
PT SITTING UP IN RECLINER CHAIR. MINIMAL 1 PERSON ASSIST JUST TO MANAGE LINES. PT IS ON RA WITH HUMIDIFIER TO TRACH. PT IS ASKING IF IT CAN BE REMOVED. SHE NORMALLY ONLY HAS A STOMA AT HOME. SPOKE WITH DR. ROBIN ABOUT THIS AND SHE WILL REVIEW THE CHART. L GROIN SITE IS STABLE, NO HEMATOMA. DR. SESAY, DR. OCASIO, AND DR. HINOJOSA HAVE ALL SEEN PT THIS AM. HOPEFULLY WILL BE ABLE TO DISCHARGE PT THIS AFTERNOON. NO SIGN OF DISTRESS. CALL LIGHT IN REACH.
[2019-10-29 11:45] LABS: Hematocrit 37.5 % (33.0-51.0); Hemoglobin 12.1 g/dL (11.5-16.0)
[2019-10-29] MEDS ORDERED: FURO40 PO (13:22)
[2019-10-29] MEDS ORDERED: CLOP75 PO (13:22)
[2019-10-29] MEDS ORDERED: METO25ER PO (13:23)
--- NOTE | 2019-10-29 15:25 | NUR ---
PT DISCHARGED. WENT OVER INSTRUCTIONS AND ANSWERED ANY QUESTIONS. PT WAS ABLE TO DRESS SELF WITH MINIMAL ASSIST. PT WHEELED TO PT ENTRANCE VIA W/C BY RN. ASSISTED INTO CAREGIVERS CAR. NO SIGN OF DISTRESS. VALUABLES WITH PT.
== END 2019-10-29 15:25 | disposition home or self-care (01) | DRG 280 ==
LOC: ER 23:35 → ICUW 10-23 01:35 → ICUE 10-23 01:35
PROVIDERS: Emergency Medicine; Hospitalist; Internal Medicine Critical Care Medicine; Internal Medicine Interventional Cardiology; Internal Medicine Pulmonary Disease; Student in an Organized Health Care Education/Training Program; ADMIT Internal Medicine
PROC: 5A1945Z Respiratory Ventilation, 24-96 Consecutive Hours (ICD-10-PCS; principal; 2019-10-23)
PROC: 5A1935Z Respiratory Ventilation, Less than 24 Consecutive Hours (ICD-10-PCS; 2019-10-23)
PROC: 3E033XZ Introduction of Vasopressor into Peripheral Vein, Percutaneous Approach (ICD-10-PCS; 2019-10-23)
PROC: 30233N1 Transfusion of Nonautologous Red Blood Cells into Peripheral Vein, Percutaneous Approach (ICD-10-PCS; 2019-10-28)
PROC: B2111ZZ Fluoroscopy of Multiple Coronary Arteries using Low Osmolar Contrast (ICD-10-PCS; 2019-10-28)
PROC: B41B1ZZ Fluoroscopy of Other Intra-Abdominal Arteries using Low Osmolar Contrast (ICD-10-PCS; 2019-10-28)
DX: I13.0 Hypertensive heart and chronic kidney disease with heart failure and stage 1 through stage 4 chronic kidney disease, or unspecified chronic kidney disease (principal); I21.4 Non-ST elevation (NSTEMI) myocardial infarction; J96.01 Acute respiratory failure with hypoxia; I50.21 Acute systolic (congestive) heart failure; R57.0 Cardiogenic shock; R65.11 Systemic inflammatory response syndrome (SIRS) of non-infectious origin with acute organ dysfunction; N17.9 Acute kidney failure, unspecified; Z20.828 Contact with and (suspected) exposure to other viral communicable diseases; E78.5 Hyperlipidemia, unspecified; Z90.11 Acquired absence of right breast and nipple; Z87.891 Personal history of nicotine dependence; Z93.0 Tracheostomy status; I70.0 Atherosclerosis of aorta; Z85.21 Personal history of malignant neoplasm of larynx; Z79.82 Long term (current) use of aspirin; Z85.118 Personal history of other malignant neoplasm of bronchus and lung; Z90.02 Acquired absence of larynx; I25.10 Atherosclerotic heart disease of native coronary artery without angina pectoris; I44.7 Left bundle-branch block, unspecified; D64.9 Anemia, unspecified; N18.9 Chronic kidney disease, unspecified
CPT/HCPCS: 0099U; 31502; 31720; 36415; 36430; 36556; 36600; 51702; 71045; 71260; 76882; 76937; 80048; 80053; 81003; 82272; 82550; 82553; 82803; 83605; 83735; 83880; 84145; 84484; 85014; 85018; 85025; 85027; 85347; 85610; 85730; 86850; 86900; 86901; 86923; 87040; 92950; 92978; 93005; 93010; 93306; 93454; 94002; 94003; 94640; 94644; 94660; 94760; 94762; 96365; 96366; 96368; 96375; 99152; 99153; 99285-25; A9270-GY; C1751; C1753; C1769; C1887; C1894; G0278; J0456; J0692; J0696; J1644; J1650; J1940; J1956; J2250; J2930; J3010; J3370; J3475; J3480; J7030; J7050; J7060; P9016; Q9967; U0002

== ENCOUNTER 2020-03-02 18:03 | Emergency (ER) | payer MEDICARE ==
[~2020-03-02] VITALS: Ht 165.1 cm; Wt 74.8 kg
[~2020-03-02 18:03] MED LIST changes: +ASPI81CH PO; +CLOP75 PO; +FURO40 PO; +METO25ER PO
[2020-03-02 19:00] LABS: BASOPHILS ABSOLUTE AUTO 0.06 K/mm3 (0.00-0.23); BASOPHILS PERCENT AUTO 1 % (0-2); EOSINOPHILS ABSOLUTE AUTO 0.15 K/mm3 (0.00-0.68); EOSINOPHILS PERCENT AUTO 2 % (0-6); Hematocrit 37.4 % (33.0-51.0); Hemoglobin 11.8 g/dL (11.5-16.0); IMMATURE GRAN ABSOLUTE AUTO 0.03 K/mm3 (0.00-0.10); IMMATURE GRAN PERCENT AUTO 0 % (0-1); LYMPHOCYTES PERCENT AUTO 23 % (21-46); MONOCYTES ABSOLUTE AUTO 0.66 K/mm3 (0.16-1.47); MONOCYTES PERCENT AUTO 8 % (4-13); Mean Corpuscular HGB 26.3 pg (26.0-34.0); Mean Corpuscular HGB Conc 31.6 g/dL (31.5-36.5); Mean Corpuscular Volume 83 fL (80-100); Mean Platelet Volume 11.1 fL (9.1-12.4); NEUTROPHILS ABSOLUTE AUTO 5.74 K/mm3 (1.96-9.15); NEUTROPHILS PERCENT AUTO 67 % (41-73); Platelet Count 207 K/mm3 (150-400); RDW Coefficient Variation 15.9 % (11.7-14.2); RDW Standard Deviation 48.3 fL (35.1-46.3); Red Blood Cell Count 4.49 M/mm3 (3.80-5.20); White Blood Cell Count 8.64 K/mm3 (4.00-11.30)
[2020-03-02 19:28] LABS: Alanine Aminotransfer (ALT/SGP 22 U/L (12-78); Albumin, Blood 3.7 g/dL (3.4-5.0); Alk Phos 99 U/L (50-136); Anion Gap 7 mmol/L (6-16); Aspartate Aminotrans (AST/SGOT 28 U/L (12-37); Bilirubin, Total 0.7 mg/dL (0.1-1.0); Blood Urea Nitrogen 36 mg/dL (8-24); Bun/Creatinine Ratio 24.2 (12.0-20.0); CO2, Blood 26 mmol/L (21-32); Chloride, Blood 105 mmol/L (98-108); Creatinine, Blood 1.49 mg/dL (0.40-1.00); Globulin, Blood 3.6 g/dL (2.2-4.0); Glomerular Filtration Rate 36 (60-); Glucose, Blood 96 mg/dL (70-99); Sodium, Blood 138 mmol/L (136-145); Total Protein, Blood 7.3 g/dL (6.4-8.2); Troponin I <0.015 ng/mL (0.000-0.040)
[2020-03-02] MEDS ORDERED: CEFD300 PO (22:12)
== END 2020-03-02 23:14 | disposition home or self-care (01) ==
LOC: ER 18:03
PROVIDERS: Emergency Medicine
DX: J18.9 Pneumonia, unspecified organism (principal); I10 Essential (primary) hypertension; E78.5 Hyperlipidemia, unspecified; E11.9 Type 2 diabetes mellitus without complications; Z88.8 Allergy status to other drugs, medicaments and biological substances; Z87.891 Personal history of nicotine dependence; Z79.899 Other long term (current) drug therapy; Z79.82 Long term (current) use of aspirin; Z79.02 Long term (current) use of antithrombotics/antiplatelets
CPT/HCPCS: 36415; 71250; 80053; 83880; 84145; 84484; 85025; 93005; 93010; 96365; 99285-25; J0696

== ENCOUNTER 2020-03-17 19:44 | Emergency (ER) | payer MEDICARE ==
[~2020-03-17] VITALS: Ht 165.1 cm; Wt 73.9 kg
[~2020-03-17 19:44] MED LIST changes: +CEFD300 PO
[2020-03-17] MEDS ORDERED: ERYT.5TO BOTHEYES (20:12)
[2020-03-17] MEDS ORDERED: GUAI600T33 PO (21:21)
[2020-03-17] MEDS ORDERED: DOXY100 PO (21:21)
== END 2020-03-17 22:22 | disposition home or self-care (01) ==
LOC: ER 19:44
DX: R05 Cough (principal); R06.02 Shortness of breath; Z88.8 Allergy status to other drugs, medicaments and biological substances; Z79.82 Long term (current) use of aspirin; Z79.02 Long term (current) use of antithrombotics/antiplatelets; Z87.891 Personal history of nicotine dependence; Z79.899 Other long term (current) drug therapy
CPT/HCPCS: 71045; 94640; 99284-25

== ENCOUNTER 2020-03-23 17:07 | Emergency (ER) | payer MEDICARE ==
[~2020-03-23] VITALS: Ht 165.1 cm; Wt 73.5 kg
[~2020-03-23 17:07] MED LIST changes: +DOXY100 PO; +ERYT.5TO BOTHEYES; +GUAI600T33 PO
[2020-03-23 17:45] LABS: BASOPHILS ABSOLUTE AUTO 0.08 K/mm3 (0.00-0.23); BASOPHILS PERCENT AUTO 1 % (0-2); EOSINOPHILS ABSOLUTE AUTO 0.23 K/mm3 (0.00-0.68); EOSINOPHILS PERCENT AUTO 2 % (0-6); Hematocrit 39.4 % (33.0-51.0); Hemoglobin 12.5 g/dL (11.5-16.0); IMMATURE GRAN ABSOLUTE AUTO 0.03 K/mm3 (0.00-0.10); IMMATURE GRAN PERCENT AUTO 0 % (0-1); LYMPHOCYTES ABSOLUTE AUTO 2.96 K/mm3 (0.84-5.20); LYMPHOCYTES PERCENT AUTO 27 % (21-46); MONOCYTES ABSOLUTE AUTO 0.71 K/mm3 (0.16-1.47); MONOCYTES PERCENT AUTO 7 % (4-13); Mean Corpuscular HGB 26.6 pg (26.0-34.0); Mean Corpuscular HGB Conc 31.7 g/dL (31.5-36.5); Mean Corpuscular Volume 84 fL (80-100); NEUTROPHILS ABSOLUTE AUTO 6.92 K/mm3 (1.96-9.15); NEUTROPHILS PERCENT AUTO 63 % (41-73); Platelet Count 245 K/mm3 (150-400); RDW Coefficient Variation 15.9 % (11.7-14.2); RDW Standard Deviation 48.6 fL (35.1-46.3); White Blood Cell Count 10.93 K/mm3 (4.00-11.30)
[2020-03-23 18:02] LABS: Albumin, Blood 3.9 g/dL (3.4-5.0); Albumin/Globulin Ratio 1.1 (0.8-1.8); Bilirubin, Total 0.9 mg/dL (0.1-1.0); Bun/Creatinine Ratio 35.3 (12.0-20.0); Calcium, Blood 9.3 mg/dL (8.5-10.1); Creatinine, Blood 1.16 mg/dL (0.40-1.00); Globulin, Blood 3.5 g/dL (2.2-4.0); Potassium, Blood 3.6 mmol/L (3.5-5.5); Total Protein, Blood 7.4 g/dL (6.4-8.2)
[2020-03-23 19:50] LABS: Influenza A, PCR Negative (NEGATIVE); Influenza B, PCR Negative (NEGATIVE); SARS-Cov-2 (COVID-19) PCR, MMC Negative (NEGATIVE)
[2020-03-23 19:51] LABS: Resp Syncytial Virus, PCR Negative (NEGATIVE)
== END 2020-03-23 21:12 | disposition home or self-care (01) ==
LOC: ER 17:07
PROVIDERS: Emergency Medicine; Physician Assistant
DX: R09.02 Hypoxemia (principal); R06.02 Shortness of breath; I10 Essential (primary) hypertension; E78.5 Hyperlipidemia, unspecified; E11.9 Type 2 diabetes mellitus without complications; Z20.828 Contact with and (suspected) exposure to other viral communicable diseases; Z87.891 Personal history of nicotine dependence; Z79.02 Long term (current) use of antithrombotics/antiplatelets; Z79.899 Other long term (current) drug therapy; Z88.8 Allergy status to other drugs, medicaments and biological substances; Z85.118 Personal history of other malignant neoplasm of bronchus and lung
CPT/HCPCS: 0241U; 36415; 71260; 80053; 85025; 93005; 93010; 99285-25; Q9967

== ENCOUNTER 2020-04-04 09:09 | Emergency (ER) | payer MEDICARE ==
[~2020-04-04] VITALS: Ht 165.1 cm; Wt 73.9 kg
[2020-04-04 10:04] LABS: BASOPHILS ABSOLUTE AUTO 0.06 K/mm3 (0.00-0.23); BASOPHILS PERCENT AUTO 1 % (0-2); EOSINOPHILS ABSOLUTE AUTO 0.11 K/mm3 (0.00-0.68); EOSINOPHILS PERCENT AUTO 1 % (0-6); Hematocrit 40.8 % (33.0-51.0); Hemoglobin 12.8 g/dL (11.5-16.0); IMMATURE GRAN ABSOLUTE AUTO 0.03 K/mm3 (0.00-0.10); IMMATURE GRAN PERCENT AUTO 0 % (0-1); LYMPHOCYTES PERCENT AUTO 16 % (21-46); MONOCYTES ABSOLUTE AUTO 0.73 K/mm3 (0.16-1.47); MONOCYTES PERCENT AUTO 7 % (4-13); Mean Corpuscular HGB 26.4 pg (26.0-34.0); Mean Corpuscular HGB Conc 31.4 g/dL (31.5-36.5); Mean Corpuscular Volume 84 fL (80-100); Mean Platelet Volume 11.4 fL (9.1-12.4); NEUTROPHILS PERCENT AUTO 74 % (41-73); Platelet Count 170 K/mm3 (150-400); RDW Coefficient Variation 15.7 % (11.7-14.2); RDW Standard Deviation 48.5 fL (35.1-46.3); Red Blood Cell Count 4.85 M/mm3 (3.80-5.20); White Blood Cell Count 9.83 K/mm3 (4.00-11.30)
[2020-04-04 10:07] LABS: Source, Urine Clean Catch
[2020-04-04 10:10] LABS: Appearance, Urine Clear (Clear); Bilirubin, Urine Neg (Neg); Blood, Urine 2+ (Neg); Color, Urine Yellow (P-Yellow); Glucose Qualitative, Urine Neg (Neg); Ketones, Urine 1+ (Neg); Leukocyte Esterase, Urine Neg (Neg); Nitrite, Urine Neg (Neg); Protein, Urine Neg (Neg); Urobilinogen, Urine NORM (Normal)
[2020-04-04 10:21] LABS: Albumin, Blood 3.3 g/dL (3.4-5.0); Albumin/Globulin Ratio 0.9 (0.8-1.8); Bilirubin, Total 0.9 mg/dL (0.1-1.0); Bun/Creatinine Ratio 20.8 (12.0-20.0); Calcium, Blood 8.7 mg/dL (8.5-10.1); Creatinine, Blood 1.2 mg/dL (0.40-1.00); Globulin, Blood 3.7 g/dL (2.2-4.0); Potassium, Blood 3.4 mmol/L (3.5-5.5)
[2020-04-04 10:30] LABS: Red Blood Cells, Urine 0-2 /hpf (0-2)
[2020-04-04 10:31] LABS: Amorphous Mod (0-Heavy); Bacteria Mod /hpf; Mucus Light (0-Heavy)
[2020-04-04 10:32] LABS: Squamous Epithelial Cells Few /hpf (Few)
[2020-04-04] MEDS ORDERED: FUROSEMIDE40 MG PO (14:12)
[2020-04-04] MEDS ORDERED: XARELTO15 MG PO (16:27)
== END 2020-04-04 17:12 | disposition home or self-care (01) ==
LOC: ER 09:09
PROVIDERS: Physician Assistant
DX: I26.99 Other pulmonary embolism without acute cor pulmonale (principal); E78.5 Hyperlipidemia, unspecified; E11.9 Type 2 diabetes mellitus without complications; Z88.8 Allergy status to other drugs, medicaments and biological substances; Z79.02 Long term (current) use of antithrombotics/antiplatelets; Z88.1 Allergy status to other antibiotic agents; Z79.899 Other long term (current) drug therapy; Z87.891 Personal history of nicotine dependence
CPT/HCPCS: 36415; 71045; 71260; 80053; 81001; 83605; 83880; 84145; 85025; 87086; 93005; 93010; 96365-59; 96366; 99285-25; J0456; J7030; J7050; P9612; Q9967

== ENCOUNTER 2020-04-28 13:44 | Inpatient (IN) | payer MEDICARE ==
[~2020-04-28] VITALS: Ht 165.1 cm; Wt 63.7 kg
[~2020-04-28 13:44] MED LIST changes: -CLOP75 PO; +FUROSEMIDE40 MG PO; -METO25ER PO; +XARELTO15 MG PO
[2020-04-28 14:19] LABS: BASOPHILS ABSOLUTE AUTO 0.06 K/mm3 (0.00-0.23); BASOPHILS PERCENT AUTO 1 % (0-2); EOSINOPHILS ABSOLUTE AUTO 0.07 K/mm3 (0.00-0.68); EOSINOPHILS PERCENT AUTO 1 % (0-6); Hematocrit 39.7 % (33.0-51.0); Hemoglobin 12.8 g/dL (11.5-16.0); IMMATURE GRAN ABSOLUTE AUTO 0.04 K/mm3 (0.00-0.10); IMMATURE GRAN PERCENT AUTO 0 % (0-1); LYMPHOCYTES ABSOLUTE AUTO 1.52 K/mm3 (0.84-5.20); LYMPHOCYTES PERCENT AUTO 15 % (21-46); MONOCYTES PERCENT AUTO 6 % (4-13); Mean Corpuscular HGB 26.6 pg (26.0-34.0); Mean Corpuscular HGB Conc 32.2 g/dL (31.5-36.5); Mean Corpuscular Volume 82 fL (80-100); Mean Platelet Volume 10.9 fL (9.1-12.4); NEUTROPHILS ABSOLUTE AUTO 7.74 K/mm3 (1.96-9.15); NEUTROPHILS PERCENT AUTO 77 % (41-73); Platelet Count 244 K/mm3 (150-400); RDW Coefficient Variation 15.9 % (11.7-14.2); RDW Standard Deviation 48.1 fL (35.1-46.3); Red Blood Cell Count 4.82 M/mm3 (3.80-5.20); White Blood Cell Count 10.03 K/mm3 (4.00-11.30)
[2020-04-28] MEDS ORDERED: XARELTO20 MG PO (14:24)
[2020-04-28 14:45] LABS: Alanine Aminotransfer (ALT/SGP 27 U/L (12-78); Albumin, Blood 3.7 g/dL (3.4-5.0); Albumin/Globulin Ratio 0.9 (0.8-1.8); Alk Phos 106 U/L (50-136); Anion Gap 9 mmol/L (6-16); Aspartate Aminotrans (AST/SGOT 41 U/L (12-37); Bilirubin, Total 1.2 mg/dL (0.1-1.0); Blood Urea Nitrogen 22 mg/dL (8-24); Bun/Creatinine Ratio 25.6 (12.0-20.0); CO2, Blood 28 mmol/L (21-32); Calcium, Blood 9.2 mg/dL (8.5-10.1); Chloride, Blood 100 mmol/L (98-108); Creatinine, Blood 0.86 mg/dL (0.40-1.00); Globulin, Blood 3.9 g/dL (2.2-4.0); Glomerular Filtration Rate >60 (60-); Glucose, Blood 99 mg/dL (70-99); Potassium, Blood 3.9 mmol/L (3.5-5.5); Sodium, Blood 137 mmol/L (136-145); Total Protein, Blood 7.6 g/dL (6.4-8.2); Troponin I <0.015 ng/mL (0.000-0.040)
[2020-04-28] MEDS ORDERED: CLOP75 PO (15:26)
[2020-04-28] MEDS ORDERED: METO25ER PO (15:27)
[2020-04-28 15:31] LABS: Influenza A, PCR Negative (NEGATIVE); Influenza B, PCR Negative (NEGATIVE); Resp Syncytial Virus, PCR Negative (NEGATIVE); SARS-Cov-2 (COVID-19) PCR, MMC Negative (NEGATIVE)
--- NOTE | 2020-04-28 18:43 | NUR ---
ER ADMIT- PT ARRIVED TO ROOM 304 VIA YOANA FROM ED. PT A/OX4, PT USES SKETCH BAD TO COMMUNICATE. PT INDEP INTO BED. PT WITH TRACH WITH 02 AT 8L, WALL SUCTION SET UP. PT REPORTS SHE USES 6-7L AT HOME AND OCCASIONALLY WILL SUCTION. PT ORIENTED TO ROOM AND CALL SYSTEM, PT UP EATING DINNER AT THIS TIME. BLUEO INFUSING. WILL REPORT TO NIGHT RN.
--- NOTE | 2020-04-29 04:21 | NUR ---
SHIFT SUMMARY PT HAS RESTED MOST OF THE NIGHT, SHE HAS DENIED NEEDS WHEN ASKED. SHE AMBULATES TO THE BATHROOM WITH 1 SBA. IV ANITBIOTICS INFUSED PER ORDERS. PT HAS A CHRONIC TRACH WITH O2 ATTACHED AT 8L. PT IS INDEPENDENT WITH TRACH AND IS ABLE TO MANAGE INDEPENDENTLY ON HER OWN. LUNG SOUNDS ARE COURSE AND MOIST. SATS WNL. COUGH IS PRODUCTIVE WITH THICK BLOOD TINGED SPUTUM. SPUTUM SAMPLE COLLECTED AND SENT FOR CULTURE. VITALS ARE STABLE. PT A/OX4, CALLS APPROPRIATELY AND MAKES NEEDS KNOWN. BED IN LOWEST POSITION, CALL LIGHT WITHIN REACH.
[2020-04-29 04:50] LABS: Source, Urine Clean Catch
[2020-04-29 04:53] LABS: Bilirubin, Urine Neg (Neg); Blood, Urine Neg (Neg); Glucose Qualitative, Urine Neg (Neg); Ketones, Urine Neg (Neg); Leukocyte Esterase, Urine 1+ (Neg); Nitrite, Urine Neg (Neg); Protein, Urine Neg (Neg); Urobilinogen, Urine NORM (Normal)
[2020-04-29 04:54] LABS: Appearance, Urine Clear (Clear); Color, Urine Yellow (P-Yellow)
[2020-04-29 05:03] LABS: BASOPHILS ABSOLUTE AUTO 0.07 K/mm3 (0.00-0.23); BASOPHILS PERCENT AUTO 1 % (0-2); EOSINOPHILS ABSOLUTE AUTO 0.18 K/mm3 (0.00-0.68); EOSINOPHILS PERCENT AUTO 2 % (0-6); Hematocrit 37.2 % (33.0-51.0); Hemoglobin 11.7 g/dL (11.5-16.0); IMMATURE GRAN ABSOLUTE AUTO 0.01 K/mm3 (0.00-0.10); IMMATURE GRAN PERCENT AUTO 0 % (0-1); LYMPHOCYTES ABSOLUTE AUTO 1.39 K/mm3 (0.84-5.20); LYMPHOCYTES PERCENT AUTO 16 % (21-46); MONOCYTES ABSOLUTE AUTO 0.65 K/mm3 (0.16-1.47); MONOCYTES PERCENT AUTO 8 % (4-13); Mean Corpuscular HGB 26.5 pg (26.0-34.0); Mean Corpuscular HGB Conc 31.5 g/dL (31.5-36.5); Mean Corpuscular Volume 84 fL (80-100); Mean Platelet Volume 11.3 fL (9.1-12.4); NEUTROPHILS ABSOLUTE AUTO 6.32 K/mm3 (1.96-9.15); NEUTROPHILS PERCENT AUTO 73 % (41-73); Platelet Count 225 K/mm3 (150-400); RDW Coefficient Variation 15.9 % (11.7-14.2); RDW Standard Deviation 49.7 fL (35.1-46.3); Red Blood Cell Count 4.42 M/mm3 (3.80-5.20); White Blood Cell Count 8.62 K/mm3 (4.00-11.30)
[2020-04-29 05:13] LABS: Bacteria Few /hpf; Red Blood Cells, Urine Not Seen /hpf (0-2); Squamous Epithelial Cells Rare /hpf (Few); White Blood Cells, Urine 0-2 /hpf (0-5)
[2020-04-29 05:22] LABS: Anion Gap 8 mmol/L (6-16); Blood Urea Nitrogen 20 mg/dL (8-24); CO2, Blood 28 mmol/L (21-32); Calcium, Blood 8.6 mg/dL (8.5-10.1); Chloride, Blood 102 mmol/L (98-108); Creatinine, Blood 0.95 mg/dL (0.40-1.00); Glomerular Filtration Rate >60 (60-); Glucose, Blood 84 mg/dL (70-99); Potassium, Blood 3.1 mmol/L (3.5-5.5); Sodium, Blood 138 mmol/L (136-145)
--- NOTE | 2020-04-29 17:02 | NUR ---
SHIFT SUMMARY PATIENT ALERT AND ORIENTED THROUGHOUT THIS SHIFT. PATIENT COOPERATIVE WITH STAFF. PATIENT WORKED WITH PT/OT THIS SHIFT. PATIENT ON 6L O2 VIA TRACH, EQUAL TO HOME O2 LEVEL. PATIENT STATES THAT SHE DOESN'T FEEL WELL ENOUGH TO GO HOME AT THIS POINT. PATIENT REMAINS ON IV ANTIBIOTICS. PATIENT IS A STANDBY ASSIST TO THE BATHROOM. PATIENT SITTING UP IN BED THROUGHOUT THIS SHIFT. PATIENT CURRENTLY SITTING UP WATCHING TELEVISION.
[2020-04-30 05:05] LABS: BASOPHILS ABSOLUTE AUTO 0.06 K/mm3 (0.00-0.23); BASOPHILS PERCENT AUTO 1 % (0-2); EOSINOPHILS ABSOLUTE AUTO 0.21 K/mm3 (0.00-0.68); EOSINOPHILS PERCENT AUTO 2 % (0-6); Hematocrit 36.1 % (33.0-51.0); Hemoglobin 11.2 g/dL (11.5-16.0); IMMATURE GRAN ABSOLUTE AUTO 0.03 K/mm3 (0.00-0.10); IMMATURE GRAN PERCENT AUTO 0 % (0-1); LYMPHOCYTES ABSOLUTE AUTO 1.27 K/mm3 (0.84-5.20); LYMPHOCYTES PERCENT AUTO 15 % (21-46); MONOCYTES ABSOLUTE AUTO 0.58 K/mm3 (0.16-1.47); MONOCYTES PERCENT AUTO 7 % (4-13); Mean Corpuscular HGB 26.4 pg (26.0-34.0); Mean Corpuscular Volume 85 fL (80-100); Mean Platelet Volume 11.4 fL (9.1-12.4); NEUTROPHILS ABSOLUTE AUTO 6.49 K/mm3 (1.96-9.15); NEUTROPHILS PERCENT AUTO 75 % (41-73); Platelet Count 223 K/mm3 (150-400); RDW Coefficient Variation 16.2 % (11.7-14.2); RDW Standard Deviation 50.2 fL (35.1-46.3); Red Blood Cell Count 4.25 M/mm3 (3.80-5.20); White Blood Cell Count 8.64 K/mm3 (4.00-11.30)
[2020-04-30 05:16] LABS: Anion Gap 8 mmol/L (6-16); Blood Urea Nitrogen 21 mg/dL (8-24); Bun/Creatinine Ratio 22.5 (12.0-20.0); CO2, Blood 28 mmol/L (21-32); Calcium, Blood 8.4 mg/dL (8.5-10.1); Chloride, Blood 104 mmol/L (98-108); Creatinine, Blood 0.93 mg/dL (0.40-1.00); Glomerular Filtration Rate >60 (60-); Glucose, Blood 99 mg/dL (70-99); Potassium, Blood 3.5 mmol/L (3.5-5.5); Sodium, Blood 140 mmol/L (136-145)
--- NOTE | 2020-04-30 05:55 | NUR ---
SHIFT SUMMARY PATIENT ALERT AND ORIENTED. HAD NO COMPLAINTS OF PAIN. SOME SHORTNESS OF BREATH NOTED WHEN PATIENT WAS UP AND MOVING AROUND. PT SLEPT WELL OVERNIGHT. IV PATENT AND FLUSHED. BED IN LOWEST POSITION WITH WHEELS LOCKED. CALL LIGHT WITHIN REACH. REPORT GIVEN TO ONCOMING RN.
--- NOTE | 2020-04-30 16:01 | NUR ---
PT BP WAS REPORTED AT 93/63. CALLED PROVIDER TO INFORM. PT REMAINS ASYMPTOMATIC. WILL RECHECK BP AT 1630 AND REPORT BACK.
--- NOTE | 2020-04-30 18:27 | NUR ---
PT RESTING IN BED, READING AFTER DINNER AND MEDICATION ADMIN. PT MAKES NO COMPLIANTS OF SOB OR PAIN AT THIS TIME. IV SL AND WNL. TRACH O2 ON 6L. STAFF WILL CONT. TO MONITOR.
--- NOTE | 2020-05-01 00:44 | NUR ---
CHANGE OF PT STATUS PATIENT STARTED THE SHIFT ON 6 LITERS O2. AROUND 2099 PT AMBULATED TO THE RESTROOM, HER O2 WAS TURNED UP TO 15 LITERS TO HELP PREVENT HER FROM DESATING WHILE UP. PATIENT HAD A COUGHING SPELL IN THE BATHROOM THE CAUSED HER TO HAVE A BM. WHEN SHE RETURNED TO HER BED SHE WAS VERY DYSPNIC AND WAS SATING AT 85%. THIS RN CALLED PT'S RT, ALON, AND HE SAID THAT SHE SHOULD RECOVER AND TO WATCH HER. WHEN THE PATIENT WAS NO LONGER DYSPNIC HER O2 SAT WAS AROUND 90% SO FLOW WAS KEPT AT 15 LITERS. AT 2149 PT'S VITALS WERE TAKEN, BLOOD PRESSURE WAS LOW AND O2 WAS AT 86%. RT CALLED AGAIN, WHO TRIED SUCTIONING THE PATIENT AND THEN PLACED HER ON AN O2 HEATER TO TRY AND HELP THE PATIENT GET MORE SECRETIONS UP, HOPING THAT WOULD HELP THE PATIENT OXYGENATE BETTER. AT 2236 PT'S BLOOD PRESSURE WAS STILL LOW BUT SLIGHTLY IMPROVED AND HER SATS WERE AT 92% VITALS RETAKEN AT 0008. BLOOD PRESSURE STILL LOW, O2 AT 85%. RT CALLED AGAIN TO ADJUST SETTINGS FOR O2. RT DISCUSSED THAT THE PATIENT WOULD LIKELY NEED TO BE PLACED ON AN AIRVO. SURGICAL PATHOLOGIST PHYSICIAN, DR BRIZUELA, CALLED AT 5 TO NOTIFY HER OF THE ABOVE CHANGES IN THE PATIENT'S CONDITION. DR BRIZUELA SAID THAT SHE WOULD BE PUTTING ORDERS FOR AN ABG AND 500 ML BOLUS OF LR. DR BRIZUELA ALSO SAID THAT SHE WANTED TO BE CALLED WITH THE RESULTS.
[2020-05-01 01:22] LABS: pH Blood Arterial 7.46 (7.35-7.45)
--- NOTE | 2020-05-01 02:11 | NUR ---
PHYSICIAN COMMUNICATION CONTACTED SENIOR DATABASE ENGINEER PHYSICIAN, DR BRIZUELA, REQUESTED TO NOTIFY HER OF THE PATIENT'S BLOOD PRESSURE AFTER RECEIVING A 500 ML FLUID BOLUS. ALSO NOTIFIED HER THAT THE PATIENT WAS NOW CONSISTENTLY SATING AT 91% SINCE SHE WAS PLACED ON THE AIRVO, AND THAT THE PATIENT WAS COMFORTABLE AND NOT HAVING ANY SHORNESS OF BREATH WHILE RESTING IN BED. DR BRIZUELA SAID TO RECHECK THE PATIENT'S BLOOD PRESSURE IN HALF AN HOUR AND CALL HER IF THE MAP IS LESS THAN 65.
--- NOTE | 2020-05-01 05:58 | NUR ---
SHIFT SUMMARY PATIENT ALERT AND ORIENTED. HAD NO COMPLAINTS OF PAIN. PATIENT IS NOW ON AN AIRVO AND IS SATING AT 92%. PATIENT RECEIVED A 500 ML BOLUS OF LR AND HAD AN ABG DRAWN BY RT. BLOOD PRESSURE HAS SLIGHTLY IMPROVED THIS MORNING AND PATIENT STATES SHE IS BEEING A LITTLE BETTER WITH HER BREATHING NOW THAT SHE IS ON THE AIRVO. IV PATENT AND FLUSHED. BED IN LOWEST POSITION WITH WHEELS LOCKED. CALL LIGHT WITHIN REACH. REPORT GIVEN TO ONCOMING RN.
[2020-05-01 07:36] LABS: BASOPHILS ABSOLUTE AUTO 0.06 K/mm3 (0.00-0.23); BASOPHILS PERCENT AUTO 1 % (0-2); EOSINOPHILS ABSOLUTE AUTO 0.19 K/mm3 (0.00-0.68); EOSINOPHILS PERCENT AUTO 3 % (0-6); Hematocrit 32.9 % (33.0-51.0); Hemoglobin 10.4 g/dL (11.5-16.0); IMMATURE GRAN ABSOLUTE AUTO 0.02 K/mm3 (0.00-0.10); IMMATURE GRAN PERCENT AUTO 0 % (0-1); LYMPHOCYTES ABSOLUTE AUTO 1.51 K/mm3 (0.84-5.20); LYMPHOCYTES PERCENT AUTO 21 % (21-46); MONOCYTES ABSOLUTE AUTO 0.52 K/mm3 (0.16-1.47); MONOCYTES PERCENT AUTO 7 % (4-13); Mean Corpuscular HGB 27.2 pg (26.0-34.0); Mean Corpuscular HGB Conc 31.6 g/dL (31.5-36.5); Mean Corpuscular Volume 86 fL (80-100); Mean Platelet Volume 10.9 fL (9.1-12.4); NEUTROPHILS ABSOLUTE AUTO 4.84 K/mm3 (1.96-9.15); NEUTROPHILS PERCENT AUTO 68 % (41-73); Platelet Count 204 K/mm3 (150-400); RDW Coefficient Variation 16.2 % (11.7-14.2); RDW Standard Deviation 50.7 fL (35.1-46.3); Red Blood Cell Count 3.83 M/mm3 (3.80-5.20); White Blood Cell Count 7.14 K/mm3 (4.00-11.30)
[2020-05-01 07:49] LABS: Anion Gap 4 mmol/L (6-16); Blood Urea Nitrogen 20 mg/dL (8-24); Bun/Creatinine Ratio 23.6 (12.0-20.0); CO2, Blood 29 mmol/L (21-32); Calcium, Blood 8.4 mg/dL (8.5-10.1); Chloride, Blood 105 mmol/L (98-108); Creatinine, Blood 0.85 mg/dL (0.40-1.00); Glomerular Filtration Rate >60 (60-); Glucose, Blood 101 mg/dL (70-99); Sodium, Blood 138 mmol/L (136-145)
--- NOTE | 2020-05-01 16:47 | NUR ---
WAS NOTIFIED BY PCU HONING MACHINE SET UP OPERATOR TOOL THAT PATIENT WAS SHOWING ELEVATED ST WAVES. DR HOUGH WAS NOTIFIED AND STAT EKG, TROPONIN AND HEP DRIP WAS ORDERED. WILL CONT. TO MONITOR.
[2020-05-01 17:21] LABS: International Normalized Ratio 1.23
[2020-05-02 01:18] LABS: BASOPHILS ABSOLUTE AUTO 0.06 K/mm3 (0.00-0.23); BASOPHILS PERCENT AUTO 1 % (0-2); EOSINOPHILS ABSOLUTE AUTO 0.23 K/mm3 (0.00-0.68); EOSINOPHILS PERCENT AUTO 3 % (0-6); Hematocrit 32.3 % (33.0-51.0); Hemoglobin 10.4 g/dL (11.5-16.0); IMMATURE GRAN ABSOLUTE AUTO 0.03 K/mm3 (0.00-0.10); IMMATURE GRAN PERCENT AUTO 0 % (0-1); LYMPHOCYTES ABSOLUTE AUTO 1.71 K/mm3 (0.84-5.20); LYMPHOCYTES PERCENT AUTO 19 % (21-46); MONOCYTES ABSOLUTE AUTO 0.53 K/mm3 (0.16-1.47); MONOCYTES PERCENT AUTO 6 % (4-13); Mean Corpuscular HGB 27.2 pg (26.0-34.0); Mean Corpuscular HGB Conc 32.2 g/dL (31.5-36.5); Mean Corpuscular Volume 85 fL (80-100); Mean Platelet Volume 10.6 fL (9.1-12.4); NEUTROPHILS ABSOLUTE AUTO 6.64 K/mm3 (1.96-9.15); NEUTROPHILS PERCENT AUTO 72 % (41-73); Platelet Count 205 K/mm3 (150-400); RDW Coefficient Variation 16.2 % (11.7-14.2); RDW Standard Deviation 49.9 fL (35.1-46.3); Red Blood Cell Count 3.82 M/mm3 (3.80-5.20)
[2020-05-02 01:33] LABS: Anion Gap 8 mmol/L (6-16); Blood Urea Nitrogen 20 mg/dL (8-24); Bun/Creatinine Ratio 21.8 (12.0-20.0); CO2, Blood 29 mmol/L (21-32); Calcium, Blood 8.6 mg/dL (8.5-10.1); Chloride, Blood 103 mmol/L (98-108); Creatinine, Blood 0.92 mg/dL (0.40-1.00); Glomerular Filtration Rate >60 (60-); Glucose, Blood 94 mg/dL (70-99); Potassium, Blood 3.5 mmol/L (3.5-5.5); Sodium, Blood 140 mmol/L (136-145)
--- NOTE | 2020-05-02 05:58 | NUR ---
SHIFT SUMMARY PATIENT ALERT AND ORIENTED. HAD NO COMPLAINTS OF PAIN. PATIENT REMAINS ON AIRVO DUE TO HER INCREASED OXYGEN NEEDS AND HOW EASILY SHE DESATURATES. HEPARIN DRIP TITRATED PER PHARMACY. IVS PATENT AND FLUSHED. BED IN LOWEST POSITION IH WHEELS LOCKED. CALL LIGHT WITHIN REACH. REPORT GIVEN TO ONCOMING RN.
--- NOTE | 2020-05-02 10:54 | NUR ---
ANTISUBMARINE [employer]ONS OFFICER ADVISED PATIENT ON CONTINUOUS HEPARIN IV. THEY WILL CHECK PROTOCOLS AND LET US KNOW IF/WHEN BIOPSY CAN BE DONE.
--- NOTE | 2020-05-02 13:28 | NUR ---
PER DR. HOWELL PATIENT TO GO TO PCU. REPORT TO PEPPER GONZALEZ RN. ROOM BEING CLEANED.
--- NOTE | 2020-05-02 15:00 | NUR ---
UPDATE: PT TRANSFERED FROM MEDICAL FLOOR VIA BED. AIRVO AT 90%, OVER TRACH. PATIENT SATING 86-90%. TELE SHOWING SINUS RHYTHM. PT DENIES ANY NEEDS AT THIS TIME. VITAL SIGNS STABLE. HEPARIN INFUSING.
--- NOTE | 2020-05-02 15:52 | NUR ---
ALERT AND ORIENTED. DENIES ANY PAIN. LUNGS COARSE T/O WITH FINE CRACKLES IN THE BASES. USES HOME WRITING BOARD TO COMMUNICATE. ONE PERSON STANDBY ASSIST TO BSC. HAS DENIED NEED FOR SUCTIONING. IS ABLE TO COUGH OUT SPUTUM THROUGH TRACH. ON AIRVO AT HIGHEST SETTING. MOVED TO PCU 6.
--- NOTE | 2020-05-02 18:49 | NUR ---
SHIFT SUMMARY: PT IS ALERT AND ORIENTED X4, USING HER WRITING PAD TO TALK. ON AIRVO AT MAX OVER TRACH OSTOMY. SATING AT 86-87% AT TIMES DROPPING DOWN TO 85%. DENIES SHORTNESS OF BREATH/CHEST PAIN. TELE SHOWING SINUS RHYTHM. VITAL SIGNS STABLE. DR. PACHECO IN TO SEE PATIENT, AND ATTEMPT MADE TO PLACE TRACH. SITE MILDLY BLEEDING MIXED WITH SPUTUM. PATIENT ABLE TO COUGH UP SPUTUM. CONTINUING TO CLOSELY MONITOR SITE AND BLEEDING. HEPARIN INFUSING. CT/LUNG BIOPSY TOMORROW, NPO AT MIDNIGHT. CALL TO CT IN MORNING FOR TIME TO TURN OFF HEPARIN. SIZE 4 FENISTRATED CUFF AT BEDSIDE WITH SUCTION PER RESPIRATORY. CALL LIGHT IN REACH AND BED REMAINED IN LOW POSITION.
[2020-05-03 00:41] LABS: BASOPHILS ABSOLUTE AUTO 0.08 K/mm3 (0.00-0.23); BASOPHILS PERCENT AUTO 1 % (0-2); EOSINOPHILS ABSOLUTE AUTO 0.24 K/mm3 (0.00-0.68); EOSINOPHILS PERCENT AUTO 3 % (0-6); Hematocrit 33.9 % (33.0-51.0); Hemoglobin 10.7 g/dL (11.5-16.0); IMMATURE GRAN ABSOLUTE AUTO 0.03 K/mm3 (0.00-0.10); IMMATURE GRAN PERCENT AUTO 0 % (0-1); LYMPHOCYTES ABSOLUTE AUTO 1.77 K/mm3 (0.84-5.20); LYMPHOCYTES PERCENT AUTO 19 % (21-46); MONOCYTES ABSOLUTE AUTO 0.56 K/mm3 (0.16-1.47); MONOCYTES PERCENT AUTO 6 % (4-13); Mean Corpuscular HGB 26.8 pg (26.0-34.0); Mean Corpuscular HGB Conc 31.6 g/dL (31.5-36.5); Mean Corpuscular Volume 85 fL (80-100); Mean Platelet Volume 11.2 fL (9.1-12.4); NEUTROPHILS ABSOLUTE AUTO 6.76 K/mm3 (1.96-9.15); NEUTROPHILS PERCENT AUTO 72 % (41-73); Platelet Count 218 K/mm3 (150-400); RDW Coefficient Variation 16.1 % (11.7-14.2); RDW Standard Deviation 49.9 fL (35.1-46.3); Red Blood Cell Count 3.99 M/mm3 (3.80-5.20); White Blood Cell Count 9.44 K/mm3 (4.00-11.30)
[2020-05-03 00:57] LABS: Anion Gap 8 mmol/L (6-16); Blood Urea Nitrogen 21 mg/dL (8-24); Bun/Creatinine Ratio 24.4 (12.0-20.0); CO2, Blood 28 mmol/L (21-32); Calcium, Blood 8.7 mg/dL (8.5-10.1); Chloride, Blood 102 mmol/L (98-108); Creatinine, Blood 0.86 mg/dL (0.40-1.00); Glomerular Filtration Rate >60 (60-); Glucose, Blood 90 mg/dL (70-99); Potassium, Blood 3.4 mmol/L (3.5-5.5); Sodium, Blood 138 mmol/L (136-145)
--- NOTE | 2020-05-03 05:49 | NUR ---
SHIFT SUMMARY PT HAS BEEN ON AIRVO AT 60LPM AND 94% WITH 02 SATS 80-90. START OF SHIFT PT WAS LOW 80'S DROPPING TO 70'S WITH EXERTION. O2 SATS IMPROVED BY AM TO AROUND 90%. RT SUCTIONED PT ONCE WITH LITTLE SPUTUM REMOVED, PT ABLE TO CLEAR AIRWAY WITH COUGHING, SPUTUM WAS BLOOD TINGED, CLEAR AND THICK. LESS BLOOD IN SPUTUM BY AM. BP 99-118 SYSTOLIC. PT STATED HAVING POSTPRANDIAL HYPOTENSION. HR 90-100'S. PT HAS BEEN NPO SINCE MIDNIGHT OTHER THAN AM MEDICATION. PT HAD A RESTFUL, UNEVENTFUL NIGHT.
--- NOTE | 2020-05-03 13:45 | NUR ---
UPDATE PT TAKEN TO CT FOR BIOPSY. WILL AWAIT RETURN.
--- NOTE | 2020-05-03 14:35 | NUR ---
UPDATE PT RETURNED FROM CT. VS STABLE. PT DENIES ANY PAIN. WILL CONTINUE TO MONITOR CLOSELY.
--- NOTE | 2020-05-03 17:39 | NUR ---
SHIFT SUMMARY PT ALERT AND ORIENTED. VS STABLE. O2 SATS HAVE REMAINED ABOVE 86% ON 60L AND 93% FIO2 VIA TRACH COLLAR. HR SR WITH BBB. PT DENIES ANY CP/PRESSURE. PT DENIES FEELING SOB. LS COARSE THROUGHOUT. PT ABLE TO AMBULATE WITH 1 ASSIST TO MANAGE LINES. PT COMMUNICATES WITH A COMMUNICATION BOARD BECAUSE SHE IS UNABLE TO SPEAK. HEP GTT DC'D THIS SHIFT AND PLAN TO RESTART XARELTO IN 48 HOURS. WILL CONTINUE TO MONITOR CLOSELY AND REPORT TO ONCOMING RN. CALL LIGHT IN REACH.
[2020-05-04 04:21] LABS: BASOPHILS ABSOLUTE AUTO 0.04 K/mm3 (0.00-0.23); BASOPHILS PERCENT AUTO 0 % (0-2); EOSINOPHILS ABSOLUTE AUTO 0.02 K/mm3 (0.00-0.68); EOSINOPHILS PERCENT AUTO 0 % (0-6); Hematocrit 32.1 % (33.0-51.0); Hemoglobin 10.2 g/dL (11.5-16.0); IMMATURE GRAN ABSOLUTE AUTO 0.04 K/mm3 (0.00-0.10); IMMATURE GRAN PERCENT AUTO 0 % (0-1); LYMPHOCYTES ABSOLUTE AUTO 0.68 K/mm3 (0.84-5.20); LYMPHOCYTES PERCENT AUTO 6 % (21-46); MONOCYTES ABSOLUTE AUTO 0.16 K/mm3 (0.16-1.47); MONOCYTES PERCENT AUTO 1 % (4-13); Mean Corpuscular HGB 26.5 pg (26.0-34.0); Mean Corpuscular HGB Conc 31.8 g/dL (31.5-36.5); Mean Corpuscular Volume 83 fL (80-100); Mean Platelet Volume 10.8 fL (9.1-12.4); NEUTROPHILS ABSOLUTE AUTO 10.68 K/mm3 (1.96-9.15); NEUTROPHILS PERCENT AUTO 92 % (41-73); Platelet Count 230 K/mm3 (150-400); RDW Coefficient Variation 16.1 % (11.7-14.2); RDW Standard Deviation 49.5 fL (35.1-46.3); Red Blood Cell Count 3.85 M/mm3 (3.80-5.20); White Blood Cell Count 11.62 K/mm3 (4.00-11.30)
[2020-05-04 04:41] LABS: Anion Gap 8 mmol/L (6-16); Blood Urea Nitrogen 23 mg/dL (8-24); Bun/Creatinine Ratio 26.7 (12.0-20.0); CO2, Blood 28 mmol/L (21-32); Calcium, Blood 8.9 mg/dL (8.5-10.1); Chloride, Blood 99 mmol/L (98-108); Creatinine, Blood 0.86 mg/dL (0.40-1.00); Glomerular Filtration Rate >60 (60-); Glucose, Blood 115 mg/dL (70-99); Sodium, Blood 135 mmol/L (136-145)
--- NOTE | 2020-05-04 06:37 | NUR ---
SHIFT SUMMARY NO ACUTE CHANGES THIS SHIFT. PT A&OX4. USES TABLET TO WRITE/COMMUNICATE. SP02>80% W/ AIRVO BLOWING INTO TRACH, 91% FI02, 60L. TELEMETRY READS SR/ST W/ BBB. HR 80'S-100'S. PT UP TO BSC TO VOID AND HAVE 1 BM W/ 1 PERSON ASSIST THIS SHIFT. PT DENIED PAIN. PT SLEPT UPRIGHT SITTING IN BED T/O THE NIGHT. CALL LIGHT IN REACH. WILL GIVE REPORT TO ONCOMING NURSE.
--- NOTE | 2020-05-04 17:59 | NUR ---
SHIFT NOTE PT COMMUNICATES WITH [employer] I ASSEMBLER BOARD. PT HAS BEEN RESTING WELL IN BED WITH NADN, VSS, DENIES CP OR SOB. A/O X4, ANSWERS QUESTIONS APPROPRIATELY. HEPARIN WAS HUNG AND IS CURRENTLY INFUSING WELL. PT HAS BEEN A ONE PERSON SBA TO BSC. PT UP TO BEDSIDE TO EAT ALL MEALS. ABLE TO COMMNICATE HER NEEDS WELL
[2020-05-05 03:41] LABS: BASOPHILS ABSOLUTE AUTO 0.04 K/mm3 (0.00-0.23); BASOPHILS PERCENT AUTO 0 % (0-2); EOSINOPHILS ABSOLUTE AUTO 0.01 K/mm3 (0.00-0.68); EOSINOPHILS PERCENT AUTO 0 % (0-6); Hemoglobin 10.2 g/dL (11.5-16.0); IMMATURE GRAN ABSOLUTE AUTO 0.06 K/mm3 (0.00-0.10); IMMATURE GRAN PERCENT AUTO 0 % (0-1); LYMPHOCYTES PERCENT AUTO 11 % (21-46); MONOCYTES ABSOLUTE AUTO 0.96 K/mm3 (0.16-1.47); MONOCYTES PERCENT AUTO 7 % (4-13); Mean Corpuscular HGB 27.3 pg (26.0-34.0); Mean Corpuscular HGB Conc 32.9 g/dL (31.5-36.5); Mean Corpuscular Volume 83 fL (80-100); Mean Platelet Volume 11.2 fL (9.1-12.4); NEUTROPHILS ABSOLUTE AUTO 11.69 K/mm3 (1.96-9.15); NEUTROPHILS PERCENT AUTO 81 % (41-73); Platelet Count 233 K/mm3 (150-400); RDW Coefficient Variation 16.1 % (11.7-14.2); RDW Standard Deviation 48.3 fL (35.1-46.3); Red Blood Cell Count 3.73 M/mm3 (3.80-5.20); White Blood Cell Count 14.36 K/mm3 (4.00-11.30)
[2020-05-05 04:02] LABS: Anion Gap 8 mmol/L (6-16); Blood Urea Nitrogen 31 mg/dL (8-24); Bun/Creatinine Ratio 34.6 (12.0-20.0); CO2, Blood 29 mmol/L (21-32); Calcium, Blood 8.8 mg/dL (8.5-10.1); Chloride, Blood 99 mmol/L (98-108); Glomerular Filtration Rate >60 (60-); Glucose, Blood 95 mg/dL (70-99); Potassium, Blood 3.3 mmol/L (3.5-5.5); Sodium, Blood 136 mmol/L (136-145)
--- NOTE | 2020-05-05 07:28 | NUR ---
SHIFT SUMMARY PATIENT PLEASENT AND COOPERATIVE THROUGHOUT THE NIGHT. PATIENT ABLE TO MAKE NEEDS KNOWN THROUGH WRITTING. PATIENT APPEARED TO NAP ON AND OFF THROUGHOUT THE NIGHT. PATIENT REPORTS HAVING PINK/RED TINGED SPUTUM THROUGHOUT THE NIGHT, DAY SHIFT RN AWARE TO MONITOR SPUTUM. PATIENT ON AIRVO VIA TRACH STOMA. HEPARIN GTT RUNNING PER ORDERS. REPORT GIVEN TO ONCOMING RN.
--- NOTE | 2020-05-05 15:50 | NUR ---
Spiritual care visit conducted. Patient is sitting up in bed and alert. Patient communicates with a tablet. She tells me about her 5 time escalante with cancer, her love for books, her inspirations and ways of coping with suffering. I highlight patient's strength and ability to overcome and maintain a positive outlook, and provide therapeutic conversation and a calming presence. Patient responds well and shows signs of an elevated mood. I will continue to attempt aide patient in the emotional/spiritual side of medical issues.
--- NOTE | 2020-05-05 18:04 | NUR ---
SHIFT NOTE PT WITH TITRATION OF HEPARIN X2 TODAY, WILL D/C HEPARIN AFTER THIS NOTE TO BEGIN XARELTO PO. OTHERWISE NO ACUTE CHANGES THIS SHIFT.
--- NOTE | 2020-05-05 22:46 | NUR ---
UPDATE PATIENT COMPLAINING OF A "CHARLEY HORSE" IN HER RIGHT CALF. WARM BLANKET DID NOT PROVIDE PATIENT WITH ANY RELIEF. NURSE PRACTIONER LUIS NOTIFIED. ORDERS RECIEVED.
--- NOTE | 2020-05-06 03:02 | NUR ---
UPDATE RN INTO ROOM TO REASSESS PATIENT'S CRAMPING IN HER LEG, PATIENT APPEARS TO BE ASLEEP, RESPIRATIONS EVEN AND UNLABORED.
[2020-05-06 04:24] LABS: BASOPHILS ABSOLUTE AUTO 0.04 K/mm3 (0.00-0.23); BASOPHILS PERCENT AUTO 0 % (0-2); EOSINOPHILS ABSOLUTE AUTO 0.03 K/mm3 (0.00-0.68); EOSINOPHILS PERCENT AUTO 0 % (0-6); Hematocrit 30.6 % (33.0-51.0); Hemoglobin 9.7 g/dL (11.5-16.0); IMMATURE GRAN ABSOLUTE AUTO 0.06 K/mm3 (0.00-0.10); IMMATURE GRAN PERCENT AUTO 1 % (0-1); LYMPHOCYTES ABSOLUTE AUTO 1.68 K/mm3 (0.84-5.20); LYMPHOCYTES PERCENT AUTO 14 % (21-46); MONOCYTES ABSOLUTE AUTO 0.86 K/mm3 (0.16-1.47); MONOCYTES PERCENT AUTO 7 % (4-13); Mean Corpuscular HGB 26.7 pg (26.0-34.0); Mean Corpuscular HGB Conc 31.7 g/dL (31.5-36.5); Mean Corpuscular Volume 84 fL (80-100); Mean Platelet Volume 11.9 fL (9.1-12.4); NEUTROPHILS ABSOLUTE AUTO 9.51 K/mm3 (1.96-9.15); NEUTROPHILS PERCENT AUTO 78 % (41-73); Platelet Count 224 K/mm3 (150-400); RDW Coefficient Variation 16.2 % (11.7-14.2); RDW Standard Deviation 49.5 fL (35.1-46.3); Red Blood Cell Count 3.63 M/mm3 (3.80-5.20); White Blood Cell Count 12.18 K/mm3 (4.00-11.30)
[2020-05-06 04:48] LABS: Anion Gap 10 mmol/L (6-16); Blood Urea Nitrogen 40 mg/dL (8-24); Bun/Creatinine Ratio 45.7 (12.0-20.0); CO2, Blood 27 mmol/L (21-32); Calcium, Blood 8.3 mg/dL (8.5-10.1); Chloride, Blood 100 mmol/L (98-108); Creatinine, Blood 0.88 mg/dL (0.40-1.00); Glomerular Filtration Rate >60 (60-); Glucose, Blood 89 mg/dL (70-99); Potassium, Blood 3.4 mmol/L (3.5-5.5); Sodium, Blood 137 mmol/L (136-145)
--- NOTE | 2020-05-06 06:52 | NUR ---
SHIFT SUMMARY PATIENT PLEASENT AND COOPERATIVE THROUGHOUT THE NIGHT. PATIENT REPORTS THIS MORNING THAT THE CRAMPING IN HER RIGHT CALF IS STILL THERE BUT IT IS "BETTER." PATIENT DECLINED THE OFFER FOR FURTHER INTERVENTION. PATIENT STATED TO "GIVE IT MORE TIME" BEFORE PURSUING ANYTHING FURTHER FOR THE CRAMPING. PATIENT APPEARED TO SLEEP WELL ON AND OFF THROUGHOUT THE SECOND HALF OF THE NIGHT. PATIENT CONTINUES TO BE ABLE TO EXPRESS HER NEEDS WELL THROUGH WRITTING. PATIENT CONTINUES TO BE ON THE AIRVO VIA STOMA. CONTINUOUS BIOX IN PLACE. WILL CONTINUE CURRENT PLAN OF CARE.
--- NOTE | 2020-05-06 18:30 | NUR ---
SHIFT NOTE PT HAS BEEN RESTING WELL IN BED T/O THE DAY, ABLE TO ADJUST SELF TO SIT AT BEDSIDE TO EAT MEALS. PT A/O X4, ANSWERS QUESTIONS WITH HER WRITING TABLET. APO2 HAS REMAINED AROUNS 92% T/O THE DAY ON AIRVO. NADN, DENIES CP OR SOB.
--- NOTE | 2020-05-06 22:31 | NUR ---
ASSUMED CARE OF PATIENT AT APPROXIMATELY 1905 FROM DAVID Camara RN. PATIENT ALERT AND ORIENTED X4; ABLE TO SPEAKS SOME WORDS; USES SPECIAL PAD TO WRITE ON TO COMMUNICATE WITH STAFF. PATIENT DENIES PAIN, NUMBNESS, TINGLING, DIZZINESS OR NAUSEA. PATIENT REPORTS BLOODY SPUTUM FOR THE PAST FEW DAYS. PATIENT DESATS TO 70% WITH AMBULATION; RECOVERS QUICKLY; PULSE OXIMETRY ON PATIENT'S RIGHT EAR. NSR W/ BBB ON TELE; OXYGEN SATURATION ABOVE 86% (PER ORDER) ON BLOW BY AIRVO. PIV S/L. SBA TO BEDSIDE COMMODE. PATIENT CURRENTLY RESTING IN BED; CALL LIGHT IN REACH; BED IN LOWEST POSISTION; BED ALARM ON.
[2020-05-07 04:12] LABS: BASOPHILS ABSOLUTE AUTO 0.04 K/mm3 (0.00-0.23); BASOPHILS PERCENT AUTO 0 % (0-2); EOSINOPHILS ABSOLUTE AUTO 0.03 K/mm3 (0.00-0.68); EOSINOPHILS PERCENT AUTO 0 % (0-6); Hematocrit 32.6 % (33.0-51.0); Hemoglobin 10.3 g/dL (11.5-16.0); IMMATURE GRAN ABSOLUTE AUTO 0.09 K/mm3 (0.00-0.10); IMMATURE GRAN PERCENT AUTO 1 % (0-1); LYMPHOCYTES ABSOLUTE AUTO 2.21 K/mm3 (0.84-5.20); LYMPHOCYTES PERCENT AUTO 16 % (21-46); MONOCYTES ABSOLUTE AUTO 0.92 K/mm3 (0.16-1.47); MONOCYTES PERCENT AUTO 7 % (4-13); Mean Corpuscular HGB 27.2 pg (26.0-34.0); Mean Corpuscular HGB Conc 31.6 g/dL (31.5-36.5); Mean Corpuscular Volume 86 fL (80-100); Mean Platelet Volume 11.5 fL (9.1-12.4); NEUTROPHILS ABSOLUTE AUTO 10.42 K/mm3 (1.96-9.15); NEUTROPHILS PERCENT AUTO 76 % (41-73); Platelet Count 255 K/mm3 (150-400); RDW Coefficient Variation 16.7 % (11.7-14.2); RDW Standard Deviation 51.4 fL (35.1-46.3); Red Blood Cell Count 3.79 M/mm3 (3.80-5.20); White Blood Cell Count 13.71 K/mm3 (4.00-11.30)
[2020-05-07 04:26] LABS: Anion Gap 6 mmol/L (6-16); Blood Urea Nitrogen 40 mg/dL (8-24); Bun/Creatinine Ratio 42.6 (12.0-20.0); CO2, Blood 28 mmol/L (21-32); Calcium, Blood 8.9 mg/dL (8.5-10.1); Chloride, Blood 102 mmol/L (98-108); Creatinine, Blood 0.94 mg/dL (0.40-1.00); Glomerular Filtration Rate >60 (60-); Glucose, Blood 91 mg/dL (70-99); Sodium, Blood 136 mmol/L (136-145)
--- NOTE | 2020-05-07 06:28 | NUR ---
PATIENT SLEPT ABOUT SEVEN HOURS LAST NIGHT. VSS. NO OTHER ACUTE CHANGES TO REPORT.
--- NOTE | 2020-05-07 18:36 | NUR ---
PT SUMMARY: PT ALERT AND ORIENTED AT BASELINE, NON VERBAL WRITES ON HER BOARD TO COMMUNICATE HAS TRACH/STOMA. VITALS HRR SR WITH BBB 80-100'S, SATS ABOVE 85% WAS TITRATED DOWN TO 50L VIA AIRVO BLOWBY ON THE TRACH, BP SYSTOLIC 110'S-120'S, AFEBRILE. PT DENIES ANY PAIN FOR THE SHIFT, PT HAS BEEN DRINKING AND EATING FINE, 1PA TO [employer] FOR TOILETING, RECEIVED A SHOWER TODAY. DR PADILLA CAME BY TO SEE PT TODAY, NO SIGNIFICANT CHANGE ON CXR REPORT TODAY COMPARE TO HER LAST CXR, NO ORDERS AT THIS TIME. NO OTHER ISSUES ENCOUNTERED FOR THE SHIFT, PT ABLE TO MAKE NEEDS KNOWN, CALLS APPROPRIATELY, WILL MONITOR UNTIL END OF SHIFT
--- NOTE | 2020-05-08 04:01 | NUR ---
SHIFT SUMMARY NO ACUTE CHANGES TO REPORT THIS SHIFT. PT HAS RESTED MOST OF THE NIGHT, SHE HAS DENIED NEEDS. SATS REMAIN WITHIN GOAL RANGE WHILE AWAKE AND SLEEPING. 50 L [address]FLOW IN [address]. PT SBA UP TO BSC. ASSESSMENT UNCHANGED. BED IN LOWEST POSITION, CALL LIGHT WITHIN REACH.
[2020-05-08 04:57] LABS: Hematocrit 34.8 % (33.0-51.0); Hemoglobin 10.9 g/dL (11.5-16.0); Mean Corpuscular HGB 26.8 pg (26.0-34.0); Mean Corpuscular HGB Conc 31.3 g/dL (31.5-36.5); Mean Corpuscular Volume 86 fL (80-100); Mean Platelet Volume 11.3 fL (9.1-12.4); Platelet Count 287 K/mm3 (150-400); RDW Coefficient Variation 16.8 % (11.7-14.2); Red Blood Cell Count 4.07 M/mm3 (3.80-5.20); White Blood Cell Count 13.63 K/mm3 (4.00-11.30)
[2020-05-08 05:24] LABS: Bun/Creatinine Ratio 42.5 (12.0-20.0); Calcium, Blood 8.8 mg/dL (8.5-10.1); Creatinine, Blood 1.06 mg/dL (0.40-1.00)
[2020-05-08 05:25] LABS: BASOPHILS PERCENT MAN 0 % (0-2); EOSINOPHILS ABSOLUTE MAN 0.27 K/mm3 (0.00-0.68); EOSINOPHILS PERCENT MAN 2 % (0-6); LYMPHOCYTES ABSOLUTE MAN 2.18 K/mm3 (0.84-5.20); LYMPHOCYTES PERCENT MAN 16 % (21-46); MONOCYTES ABSOLUTE MAN 0.95 K/mm3 (0.16-1.47); MONOCYTES PERCENT MAN 7 % (4-13); NEUTROPHILS ABSOLUTE MAN 10.22 K/mm3 (1.96-9.15); SEG NEUTROPHILS PERCENT MAN 75 % (41-73); TOTAL CELLS COUNTED 100
--- NOTE | 2020-05-08 17:38 | NUR ---
PT SUMMARY: NO ACUTE CHANGE FOR THE SHIFT, PT REMAINS ON AIRVO 50L BLOWBY VIA TRACH/STOMA THE REST OF THE VITALS HAS BEEN STABLE. DENIES CHEST PAIN/PRESSURE OR ANY KIND OF PAIN WAS UP IN THE CHAIR FOR LUNCH AND BREAKFAST, USES BSC FOR TOILETING. NO OTHER ISSUES ENCOUNTERED FOR THE PT HAS BEEN PLEASANT AND COOPERATIVE USES [employer] BOARD FOR COMMUNICATION. ALERT AND ORIENTED X4. WILL MONITOR UNTIL END OF SHIFT
--- NOTE | 2020-05-09 04:49 | NUR ---
SHIFT SUMMARY PATIENT IS ALERT, ORIENTED, AND COOPERATIVE WITH CARE. REPOSITIONS SELF IN BED AND IS A 1 PERSON ASSIST TO BEDSIDE COMMODE. USES CALL LIGHT APPROPRIATELY. PATIENT USES TABLET TO WRITE RESPONSES DUE TO STOMA. 02 SATS 85-90% ON AIRVO WITH 50L O2 WHICH IS WITHIN DRs PERAMETERS. PATIENT SLEPT MOST THE NIGHT. VSS, NO ACUTE CHANGES. CALL LIGHT IN REACH.
[2020-05-09 05:07] LABS: BASOPHILS ABSOLUTE AUTO 0.05 K/mm3 (0.00-0.23); BASOPHILS PERCENT AUTO 0 % (0-2); EOSINOPHILS ABSOLUTE AUTO 0.48 K/mm3 (0.00-0.68); EOSINOPHILS PERCENT AUTO 3 % (0-6); Hematocrit 33.7 % (33.0-51.0); Hemoglobin 10.6 g/dL (11.5-16.0); IMMATURE GRAN ABSOLUTE AUTO 0.08 K/mm3 (0.00-0.10); IMMATURE GRAN PERCENT AUTO 1 % (0-1); LYMPHOCYTES ABSOLUTE AUTO 2.54 K/mm3 (0.84-5.20); LYMPHOCYTES PERCENT AUTO 15 % (21-46); MONOCYTES PERCENT AUTO 5 % (4-13); Mean Corpuscular HGB 26.5 pg (26.0-34.0); Mean Corpuscular HGB Conc 31.5 g/dL (31.5-36.5); Mean Corpuscular Volume 84 fL (80-100); Mean Platelet Volume 11.5 fL (9.1-12.4); NEUTROPHILS PERCENT AUTO 76 % (41-73); Platelet Count 291 K/mm3 (150-400); RDW Coefficient Variation 16.6 % (11.7-14.2); RDW Standard Deviation 50.8 fL (35.1-46.3); White Blood Cell Count 16.85 K/mm3 (4.00-11.30)
[2020-05-09 05:37] LABS: Bun/Creatinine Ratio 49.7 (12.0-20.0); Calcium, Blood 8.6 mg/dL (8.5-10.1); Creatinine, Blood 0.97 mg/dL (0.40-1.00); Potassium, Blood 3.6 mmol/L (3.5-5.5)
--- NOTE | 2020-05-09 17:06 | NUR ---
PT SUMMARY: NO ACUTE CHANGE FOR THE SHIFT, PT REMAINS ON 50L OF AIRVO BLOWBY VIA TRACH/STOMA. SATS KEPT ABOVE 86% WHEN AWAKE. PT DENIES ANY PAIN FOR THE SHIFT. PT HAS BEEN PLEASANT AND COOPERATIVE. STILL AWAITING FOR BIOPSY GENOME TESTIN RESULT. NO OTHER ISSUES ENCOUNTERED FOR THE SHIFT, ABLE TO MAKE NEEDS KNOWN. WILL MONITOR UNTIL END OF SHIFT
--- NOTE | 2020-05-09 18:39 | NUR ---
PT HAD 6 BEATS RUNS OF VTACH, PT WAS ASYMPTOMATIC PT DIDNT FEEL ANY CHEST PAIN/PRESSURE. DR SESAY CALLED AND MADE AWARE NO NEW ORDERS AT THIS TIME. WILL MONITOR
[2020-05-10 04:44] LABS: BASOPHILS ABSOLUTE AUTO 0.05 K/mm3 (0.00-0.23); BASOPHILS PERCENT AUTO 0 % (0-2); EOSINOPHILS PERCENT AUTO 1 % (0-6); Hematocrit 34.8 % (33.0-51.0); Hemoglobin 11.1 g/dL (11.5-16.0); IMMATURE GRAN ABSOLUTE AUTO 0.07 K/mm3 (0.00-0.10); IMMATURE GRAN PERCENT AUTO 0 % (0-1); LYMPHOCYTES ABSOLUTE AUTO 2.63 K/mm3 (0.84-5.20); LYMPHOCYTES PERCENT AUTO 17 % (21-46); MONOCYTES ABSOLUTE AUTO 0.95 K/mm3 (0.16-1.47); MONOCYTES PERCENT AUTO 6 % (4-13); Mean Corpuscular HGB Conc 31.9 g/dL (31.5-36.5); Mean Corpuscular Volume 85 fL (80-100); Mean Platelet Volume 11.4 fL (9.1-12.4); NEUTROPHILS ABSOLUTE AUTO 12.06 K/mm3 (1.96-9.15); NEUTROPHILS PERCENT AUTO 76 % (41-73); Platelet Count 311 K/mm3 (150-400); RDW Coefficient Variation 16.8 % (11.7-14.2); RDW Standard Deviation 51.4 fL (35.1-46.3); Red Blood Cell Count 4.11 M/mm3 (3.80-5.20); White Blood Cell Count 15.86 K/mm3 (4.00-11.30)
--- NOTE | 2020-05-10 04:54 | NUR ---
SHIFT SUMMARY PATIENT IS A&O X4, COOPERATIVE WITH CARE. REPOSITIONS SELF IN BED. SLEPT MOST THE SHIFT. PATIENT WRITES ON TABLET TO COMMUNICATE. 02 SATS >82% WHILE SLEEPING ON AIRVO @50L. VSS, NO ACUTE CHANGES. CALL LIGHT IN REACH.
[2020-05-10 05:02] LABS: Calcium, Blood 8.9 mg/dL (8.5-10.1); Creatinine, Blood 0.96 mg/dL (0.40-1.00); Potassium, Blood 3.7 mmol/L (3.5-5.5)
--- NOTE | 2020-05-10 08:50 | NUR ---
PT COMMUNICATED THAT SHE NEED PILLED CRUSH; UNABLE TO CRUSH POTASSIUM, NOTIFIED DR SESAY NEW ORDERS FOR POTASSIUM CLORIDE ELIXAR. NOTIFIED DR SESAY OF BP; NEW ORDERS TO HOLD LASIX THIS AM. WILL CONTINUE TO MONITOR.
--- NOTE | 2020-05-10 19:07 | NUR ---
SHIFT SUMMARY PT A&O$; NONVERBAL BUT COMMUNICATED WITH WRITING BOARD OR MOUTHING WORDS. PT 1 PERSON ASSIST TO CHAIR AND BATHROOM. PT DENIES PAIN, CHEST PAIN, SOB, NAUSEA AND DIZZINESS/LIGHTHEADEDNESS. PT SPO2 >86% ON AIRVO/TRACH COLLAR 50L FIO2 87-88%. VSS. NO OTHER ACUTE CHANGES NOTED DURING SHIFT. REPORT GIVEN TO ONCOMING RN.
--- NOTE | 2020-05-10 19:35 | NUR ---
ASSUMED CARE RECEIVED BEDSIDE REPORT FROM ROSENDO CASAS; PT A&O X 4; DENIES CHEST PAIN; VSS; SINUS TACH NOTED ON TELE W/ HR 100; O2 SATS >89 ON AIRVO TO STOMA; DISCUSSED W/ RT O2 SATS PARAMETERS; PT DENIES NEEDS CURRENTLY; CALL LIGHT IN REACH; BED IN LOWEST POSITION.
[2020-05-11 04:48] LABS: BASOPHILS ABSOLUTE AUTO 0.05 K/mm3 (0.00-0.23); BASOPHILS PERCENT AUTO 0 % (0-2); EOSINOPHILS ABSOLUTE AUTO 0.15 K/mm3 (0.00-0.68); EOSINOPHILS PERCENT AUTO 1 % (0-6); Hemoglobin 10.9 g/dL (11.5-16.0); IMMATURE GRAN ABSOLUTE AUTO 0.12 K/mm3 (0.00-0.10); IMMATURE GRAN PERCENT AUTO 1 % (0-1); LYMPHOCYTES ABSOLUTE AUTO 2.35 K/mm3 (0.84-5.20); LYMPHOCYTES PERCENT AUTO 14 % (21-46); MONOCYTES ABSOLUTE AUTO 0.98 K/mm3 (0.16-1.47); MONOCYTES PERCENT AUTO 6 % (4-13); Mean Corpuscular HGB Conc 32.1 g/dL (31.5-36.5); Mean Corpuscular Volume 84 fL (80-100); Mean Platelet Volume 11.9 fL (9.1-12.4); NEUTROPHILS ABSOLUTE AUTO 13.38 K/mm3 (1.96-9.15); NEUTROPHILS PERCENT AUTO 79 % (41-73); Platelet Count 256 K/mm3 (150-400); RDW Coefficient Variation 16.7 % (11.7-14.2); RDW Standard Deviation 50.9 fL (35.1-46.3); Red Blood Cell Count 4.04 M/mm3 (3.80-5.20); White Blood Cell Count 17.03 K/mm3 (4.00-11.30)
[2020-05-11 04:56] LABS: Anion Gap 7 mmol/L (6-16); Blood Urea Nitrogen 45 mg/dL (8-24); Bun/Creatinine Ratio 56.1 (12.0-20.0); CO2, Blood 26 mmol/L (21-32); Calcium, Blood 8.5 mg/dL (8.5-10.1); Chloride, Blood 105 mmol/L (98-108); Glomerular Filtration Rate >60 (60-); Glucose, Blood 91 mg/dL (70-99); Potassium, Blood 3.7 mmol/L (3.5-5.5); Sodium, Blood 138 mmol/L (136-145)
--- NOTE | 2020-05-11 06:10 | NUR ---
SHIFT SUMMARY PT A&O X 4; VSS; DENIES CHEST PAIN; SINUS [place] W/ BBB NOTED ON TELE; O2 SATS >89 ON AIRVO TO STOMA; TITRATED VIA RT W/ PARAMETERS; SLEPT SEVERAL HOURS IN BETWEEN INTERVENTIONS; CALLS APPROPRIATELY AND MAKES NEEDS KNOWN; CALL LIGHT IN REACH; BED IN LOWEST POSITION; WILL CONTINUE TO MONITOR CLOSELY UNTIL HAND OFF TO DAY SHIFT RN.
--- NOTE | 2020-05-11 14:40 | NUR ---
CHEMO INFUSION REVIEWED PT EDUCATION HANDOUT WITH PT ABOUT ORDERED CHEMO- PT VERB UNDERSTANING WELL S/SX OF POSSIBLE REACTIONS. VS AT BASELINE FOR PT. POWERGLIDE LEFT UPPER ARM WITH + BLOOD RETURN AND FLUSHES EASILY.
--- NOTE | 2020-05-11 15:18 | NUR ---
CHEMO INFUSION COMPLETED PT REMINGTON WELL, NO C/O. VS AT BASELINE. POWERGLIDE LEFT UPPER ARM PATENT T/O INFUSION.
--- NOTE | 2020-05-11 17:20 | NUR ---
SHIFT SUMAMRY: PT ALERT AND ORIENTED X4. NON VERBAL DUE TO TRACH STOMA. USING WRITTING PAD TO COMMUNICATE. ON AIRVO AT 50L AND 78% SATING AT 86%. DENIES SHORTNESS OF BREATH. WITH MOVEMENT PT WILL DESATURATED TO 83% AT TIMES. TELE SHOWING SINUS RHYTHM WITH BUNDLE BRANCH BLOCK, HR AVERAGING 90-100. DENIES PAIN/CHEST PRESSURE. DR. CARTAGENA IN TO SEE PATIENT TO DISCUSS CHEMOTHERAPY. FIRST INFUSION OF CHEMOTHERAPY GIVEN TODAY BY CHEMO NURSE, PT ON CHEMOTHERAPY PRECAUTIONS. PATIENT TOLERATED THERAY WELL. VITAL SIGNS HAVE REMAINED STABLE. PT EATING DINNER AND DENIES ANY PAIN/NAUSEA. OCCASIONAL PRODUCTIVE COUGH THAT IS CLEAR. NEIGHBOR IN TO VISIT PATIENT THIS EVENING BRIGHTENING HER MOOD. 1 PERSON ASSIST TO BEDSIDE COMMODE. CALLING APPROPRIATLY. BED REMAINED LOW AND LOCKED. WILL CONTINUE TO MONITOR AND REPORT OFF.
--- NOTE | 2020-05-11 23:37 | NUR ---
PATIENT IS PLEASENT. VITALS ARE STABLE HR AT SR WITH BBB @94. AIRVO @ 50L AND 82%. READING AT RANGES OF 84 TO 86%. ABLE TO USE BSC WITH 1X ASSIST. REDDNESS IN COCCYX AREA WITH PRESSURE SORE OF 1CM ON LEFT SIDE AND OTHERS IN DEVELOPMENT. A/O X4. WILL CONTINUE TO MONITOR.
[2020-05-12 04:29] LABS: BASOPHILS ABSOLUTE AUTO 0.04 K/mm3 (0.00-0.23); BASOPHILS PERCENT AUTO 0 % (0-2); EOSINOPHILS ABSOLUTE AUTO 0.26 K/mm3 (0.00-0.68); EOSINOPHILS PERCENT AUTO 3 % (0-6); Hematocrit 32.2 % (33.0-51.0); Hemoglobin 10.1 g/dL (11.5-16.0); IMMATURE GRAN ABSOLUTE AUTO 0.11 K/mm3 (0.00-0.10); IMMATURE GRAN PERCENT AUTO 1 % (0-1); LYMPHOCYTES PERCENT AUTO 19 % (21-46); MONOCYTES ABSOLUTE AUTO 0.46 K/mm3 (0.16-1.47); MONOCYTES PERCENT AUTO 4 % (4-13); Mean Corpuscular HGB 26.9 pg (26.0-34.0); Mean Corpuscular HGB Conc 31.4 g/dL (31.5-36.5); Mean Corpuscular Volume 86 fL (80-100); Mean Platelet Volume 11.3 fL (9.1-12.4); NEUTROPHILS ABSOLUTE AUTO 7.65 K/mm3 (1.96-9.15); NEUTROPHILS PERCENT AUTO 73 % (41-73); Platelet Count 271 K/mm3 (150-400); RDW Coefficient Variation 16.9 % (11.7-14.2); Red Blood Cell Count 3.75 M/mm3 (3.80-5.20); White Blood Cell Count 10.52 K/mm3 (4.00-11.30)
[2020-05-12 04:47] LABS: Bun/Creatinine Ratio 40.6 (12.0-20.0); Calcium, Blood 8.1 mg/dL (8.5-10.1); Creatinine, Blood 1.01 mg/dL (0.40-1.00); Potassium, Blood 4.3 mmol/L (3.5-5.5)
--- NOTE | 2020-05-12 05:20 | NUR ---
SHIFT SUMMARY VITALS STABLE. SR/ST WITH BBB 80'S-110'S. AIRVO @ 50L, FIO2 79% W/ SPO2 > 80% WHEN SLEEPING AND >84% WHEN AWAKE. UP WITH ASSISTANCE TO BSC. SKIN BREAKDOWN NOTED TO COCCYX, BARRIER CREAM WITH MIPILEX APPLIED. PATIENT ENCOURAGED TO REPOSITION AND MOVE.
--- NOTE | 2020-05-12 07:26 | NUR ---
patient gave permission to give care on 05/12/20.
--- NOTE | 2020-05-12 10:44 | NUR ---
HAVING A HARD TIME GETTING A ACCURATE SAT ON PT, RT PLACED A HEAD BAND ON HER, SHE IS IN THE 70'S, PULMINARY CALLED TO ROOM SHE IS ON AIRVO MAXED, PUT HER ON A VENT AND WILL MOVE TO ICU, GAVE REPORT TO EZE ROBBINS, WILL MOVE SOON ROOM AVAILABLE, RT STAYING WITH PT UNTIL MOVE. PT WAS GIVEN 2MG ATIVAN FOR ANXIETY. CALL LIGHT IN REACH.
--- NOTE | 2020-05-12 11:48 | NUR ---
PT WAS TAKEN TO ICU 4 VIA BED WITH CHARGE NURSE,RT, AND ICU NURSES IN ATTENDENCE.
--- NOTE | 2020-05-12 13:08 | NUR ---
LEFT UPPER ARM 18G POWER GLIDE REMOVED,ATTEMPTED TO PLACE PICC LINE THROUGH AND IT WAS UNSUCCESSFUL. PICC WAS PLACED IN THE RIGHT UPPER ARM.
--- NOTE | 2020-05-12 13:18 | NUR ---
PT WITH SATS IN THE 80S ON 100% OXYGEN, VENT AT 14,490 TIDAL VOLUME/12 PEEP/ PT QUESTIONED ABOUT HER BOTTOM, REPORTED TO HAVE A DECUBITUS, SHE IS NOT ABLE TO TELL ME HOW IT IS FEELING. SHE IS ANSWERING QUESTIONS BUT SHE IS NOT ABLE TO WRITE ON HER BOARD. WITH HER SATS NOT RISING, NOT GOING TO TURN HER AT THIS TIME.
--- NOTE | 2020-05-12 13:39 | NUR ---
PT HAD LENGTHY DISCUSSION WITH IN REGARDS TO HER CURRENT SITUATION. SHE AGREED, SHOULD THE TIME COME, TO NOT HAVE ELECTRICITY OR HEART MASSAGE (CPR/DEFIBRILLATION). SPEAKING WITH ROLAN, PASTORAL CARE, SHE IS STATING THAT SHE DOES WANT THOSE THINGS. PATIENT CONTINUES TO ANSWER QUESTIONS APPROPRIATELY AND NODS APPROVAL.
[2020-05-12 15:19] LABS: Source, Urine Catheter
[2020-05-12 15:49] LABS: Appearance, Urine Clear (Clear); Bilirubin, Urine Neg (Neg); Blood, Urine Neg (Neg); Color, Urine Yellow (P-Yellow); Glucose Qualitative, Urine Neg (Neg); Ketones, Urine Neg (Neg); Leukocyte Esterase, Urine Neg (Neg); Nitrite, Urine Neg (Neg); Protein, Urine Neg (Neg); Specific Gravity, Urine 1.015 (1.003-1.022); Urobilinogen, Urine NORM (Normal)
--- NOTE | 2020-05-12 16:41 | NUR ---
PT AWAKE ANSWERING APPROPRIATELY BLOOD PRESSURE CONTINUES TO BE LABILE, MADE AWARE, HE ORDERED VASOPRESSIN. SPOKE BRIEFLY WITH PATIENT. SHE NODS, AND SMILES. SHE CONTINUES TO BE WITHOUT RESTRAINTS, SHE TOUCHES AND HOLDS THE TUBING FOR THE SUCTION AND THE CIRCUIT, BUT DOES NOT PULL ON IT.
--- NOTE | 2020-05-12 17:09 | NUR ---
PT RECEIVING ECHO, TOLERATING WELL, COOPERATIVE, MOVES SELF TO HELP CHARLENE.
--- NOTE | 2020-05-12 17:26 | NUR ---
Spiritual care note: Asked by staff to meet with Luana as her health is declining. I offered gentle delinquency counselor and encouragement. She made it known that she was not interested in vacuum forming machine operator visit by giving me a look of anger and then just staring at me without response. I will remain available to pt and family.
--- NOTE | 2020-05-12 17:41 | NUR ---
DYLAN IS CURRENTLY RESTING IN BED, VENTILATOR ON SPONTANEOUS PEEP 12, OXYGEN AT 70%, SATS >90%. IV WITH 1 LITER NORMAL SALINE FINISHING UP, VASOPRESSIN @ 0.04U/ML AND LEVOPHED @ 15MCG/MIN. BLOOD PRESSURE IS TRENDING UPWARD, SHE IS TOLERATING SIPS OF WATER, FARLEY DRAINS CLEAR YELLOW, NO BOWEL MOVEMENT. PT CONTINUES TO NOD AND SHAKE HER HEAD APPROPRIATELY, BUT DIDN'T REMEMBER DRINKING WATER, OR THAT THERE WAS A STRAW IN IT, SHE TRIED TO DRINK FROM THE LID. COCCYX WITH FOAM PAD NOW IN PLACE, PATIENT HAS BEEN POSITIONING HERSELF, MOVING ALL EXTREMITIES AND NOT PULLING OFF HER CIRCUIT. WILL GIVE REPORT TO NEXT SHIFT WHEN AVAILABLE.
--- NOTE | 2020-05-12 19:00 | NUR ---
ASSUMED CARE NOTE: ASSUMED CARE OF PT AT 1900, RECEVIED REPORT FROM VANE ROBBINS. PT IS ALERT AND ORIENTED TO SELF, ABLE TO FOLLOW COMMANDS AND ANSWER QUESTIONS USING HAND GESTURES. PT IS ON VENT, SETTINGS PS 15/PEEP12/FiO2 90% PT IS HAVING THIN RED TINGED SECTRETIONS. PT IS SINUS TACH BBB, HR BETWEEN 98-105. BP STABLE WITH PRESSORS, LEVOPHED AT 15MCG/MIN, VASOPRESSIN 0.04U/MIN. PT DENIES ANY PAIN/NAUSEA AT THIS TIME. FARLEY PATENT DRAINING TO GRAVITY, CLEAR YELLOW URINE NOTED. WILL CONTINUE TO MONITOR PT.
[2020-05-13 03:56] LABS: BASOPHILS ABSOLUTE AUTO 0.07 K/mm3 (0.00-0.23); BASOPHILS PERCENT AUTO 1 % (0-2); EOSINOPHILS ABSOLUTE AUTO 0.05 K/mm3 (0.00-0.68); EOSINOPHILS PERCENT AUTO 0 % (0-6); Hematocrit 30.5 % (33.0-51.0); Hemoglobin 9.9 g/dL (11.5-16.0); IMMATURE GRAN PERCENT AUTO 1 % (0-1); LYMPHOCYTES ABSOLUTE AUTO 1.43 K/mm3 (0.84-5.20); LYMPHOCYTES PERCENT AUTO 10 % (21-46); MONOCYTES ABSOLUTE AUTO 0.48 K/mm3 (0.16-1.47); MONOCYTES PERCENT AUTO 3 % (4-13); Mean Corpuscular HGB 27.3 pg (26.0-34.0); Mean Corpuscular HGB Conc 32.5 g/dL (31.5-36.5); Mean Corpuscular Volume 84 fL (80-100); Mean Platelet Volume 11.1 fL (9.1-12.4); NEUTROPHILS ABSOLUTE AUTO 12.54 K/mm3 (1.96-9.15); NEUTROPHILS PERCENT AUTO 86 % (41-73); Platelet Count 243 K/mm3 (150-400); RDW Coefficient Variation 16.1 % (11.7-14.2); RDW Standard Deviation 48.8 fL (35.1-46.3); Red Blood Cell Count 3.62 M/mm3 (3.80-5.20); White Blood Cell Count 14.67 K/mm3 (4.00-11.30)
[2020-05-13 04:17] LABS: Albumin, Blood 3.2 g/dL (3.4-5.0); Anion Gap 7 mmol/L (6-16); Blood Urea Nitrogen 29 mg/dL (8-24); Bun/Creatinine Ratio 35.6 (12.0-20.0); CO2, Blood 27 mmol/L (21-32); Chloride, Blood 101 mmol/L (98-108); Creatinine, Blood 0.81 mg/dL (0.40-1.00); Glomerular Filtration Rate >60 (60-); Glucose, Blood 150 mg/dL (70-99); Phosphorus, Blood 3.1 mg/dL (2.5-4.9); Potassium, Blood 3.7 mmol/L (3.5-5.5); Sodium, Blood 135 mmol/L (136-145)
--- NOTE | 2020-05-13 06:07 | NUR ---
SHIFT SUMMARY: ' PT CONTINUES TO BE ALERT AND ORIENTEDX3. VENT SETTINGS CHANGED TO PS 15, PEEP 12, FiO2 OF 80%, SPO2 REMAINED ABOVE 90% PT HAVING SMALL AMOUNTS OF RED TINGED SECRETIONS. PT HAS BEEN IN SINUS RHYTHM TO SINUS TACH HR BETWEEN 90-105. PT CONTINUES TO BE ON LEVOPHED, WHICH HAS BEEN TITRATED DOWN TO 8MCG/MIN, VASOPRESSIN AT 0.04U/MINM, TO MAINTAIN MAP GREATER THAN 65. PT HAS DENIED PAIN T/O SHIFT. NO BM THIS SHIFT, ACTIVE BT HEARD IN ALL QUADRANTS. PT PROVIDED WITH ORAL CARE EVERY 1HR FOR COMFORT. PT ABLE TO MOVE ALL EXTREMITIES, WEAK, HOWEVER ABLE TO ASSIST WITH TURNS AND FOLLOWS DIRECTIONS. MEPILEX ON COCCYX CONTINUES TO BE C/D/I. FARLEY PATENT AND DRAINING TO GRAVITY, 2000ML OUTPUT THIS SHIFT.
--- NOTE | 2020-05-13 08:00 | NUR ---
PT CONTINUES WITH #6.0 SHILEY TRACH TO VENT. PT IS A&OX3. PT COMMUNICATING NEEDS BY MOUTHING WORDS AND GESTURING . PT USES CALL LIGHT APPROPRIATELY. PT DENIES PAIN OR ANXIETY AT THIS TIME. SHE HAS RECEIVED NO SEDATION OF ANY KIND SINCE YESTERDAY AFTERNOON. ECG SHOWS SR TO ST WITH BBB. MAP 60-65 WITH VASOPRESSIN @0.04 UNITS/MIN AND LEVOPHED @ 5 MCG/MIN. NO NOTED EDEMAN-DP/PT PULSES STRONG. LUNGS COARSE TO UPPER LOBES AND DIMINISHED IN THE BASES. SMALL AMOUNT OF SANGINOUS DRAINAGE NOTED TO TRACH DRAIN SPONGE. TRACH SUCTION PRODUCTIVE OF A SMALL, AMOUNT OF THIN, BLOOD TINGED SPUTUM. PT ABLE TO SWALLOW MEDS WITH A SIP OF H2O WITHOUT SIGNS OF ASPIRATION. PT REPORTS THAT SHE IS NOT HUNGRY. SHE REFUSES HER BREAKFAST TRAY. PT INCONTINENT OF MODERATE AMOUNT OF SOFT, BROWN STOOL. DRESSING CHANGE COMPLETED TO COCCYX-MEPILEX DRESSING C/D/I. WOUNDS APPEAR TO BE LESS RED THAN 05/12/20. PT REPOSITIONED TO COMFORT-SUPINE WITH HOB ELEVATED AND EXTREMITIES ON PILLOWS.
--- NOTE | 2020-05-13 09:15 | NUR ---
PT REPORTING RIGHT HAND NUMBNESS AND WEAKNESS. DR. GARCIA IN TO SEE PT. PT INDICATED THAT SHE FELT THAT THE WEAKNESS STARTED YESTERDAY. HOWEVER, DURING AM ASSESSMENT, PT WAS USING HER RIGHT ARM TO HOLD HERSELF ON HER SIDE WHILE STAFF CLEANED HER UP AND CHANGED HER BED. PT INDICATING THAT SHE IS FRUSTRATED WITH HER "BOARD." MOTORCYCLE DESIGNER AT BEDSIDE ASSISTING WITH COMMUNICATION BOARD.
--- NOTE | 2020-05-13 10:02 | NUR ---
PT IS VERY CONFUSED AND AGITATED. SHE IS TRYING TO COMMUNICATE, BUT NOT MAKING ANY SENSE AT THIS TIME. SATS 83%- DR. GARCIA MADE AWARE. PT MED WITH ATIVAN 1 MG IVPX1 FOR AGITATION SEE EMAR.
--- NOTE | 2020-05-13 10:30 | NUR ---
TRACH CARE COMPLETED. PT TOLERATED WELL. SMALL AMOUNT OF SANGINOUS DRAINAGE AROUND TRACH. SPUTUM SPECIMEN SENT PER DR. GARCIA ORDERS. PT RESTING QUIETLY ON VENT WHEN NOT DISTURBED. AWAKENED TO VERBAL AND FOLLOWS COMMANDS, BUT NO LONGER AGITATED AND MAINTAINS SATS>90%
--- NOTE | 2020-05-13 10:39 | NUR ---
PT RESTING QUIETLY ON VENT. SATS 91%.
--- NOTE | 2020-05-13 12:00 | NUR ---
PT [id number] CONFUSED, BUT COOPERATIVE WITH CARE AND NO LONGER AGITATED. MAINTAINS SATS>90% ON FIO2 60%. ASSISTED PT WITH APROX. 50 CC OF FULL LIQUID SOUP. PT APPETITE POOR, BUT SHE DENIES NAUSEA. PT REQUESTS "PUREE" DIET FOR DINNER-ORDER PLACED IN COMPUTER.
--- NOTE | 2020-05-13 13:25 | NUR ---
PHYSICAL THERAPY IN TO EVALUATE PT. PT NOW APPEARS TO HAVE WEAKNESS TO RIGHT LOWER EXTREMITY AND RIGHT SIDED NEGLECT. RIGHT ARM REMAINS WEAK WITH ONLY GROSS MOTOR MOVEMENT-NO FINE MOTOR SKILLS. PT DANGLED WITH PHYSICAL THERAPY AND LISTS TO THE RIGHT SIDE. SHE NEEDED PROMPTING TO HOLD ON WITH HER LEFT HAND AND HOLD HERSELF UP. MAP TRENDING LESS THAN 60 WITH LEVOPHED @ 5 MCG-VASOPRESSIN DRIP RESUMED.
--- NOTE | 2020-05-13 16:30 | NUR ---
PT TO CT SCAN OF HEAD WITH AND WITHOUT CONTRAST. TOLERATED WELL MAP 60-65 WITH LEVOPHED @ 3 MCG/MIN. MAINTAINS SATS>90% OF FIO2 70%. PT CONTINUES TO DENY PAIN OR ANXIETY.
--- NOTE | 2020-05-13 18:05 | NUR ---
RN SPOKE WITH DR. GARCIA REGARDING CT RESULTS-IT APPEARS THAT PT HAS INFACT HAD A ISCHEMIC STROKE. RIGHT SIDED WEAKNESS AND NEGLECT CONTINUES. PT A&OX3-NODS APPROPRIATELY TO "YES" OR "NO" QUESTIONS. PT ABLE TO TAKE XARELTO IN PUREED FRUIT WITH A SIP OF WATER AND NO SIGNS OF ASPIRATION. PT APPETITE POOR-SHE HAS REFUSED HER DINNER TRAY. DR. GARCIA HAS REQUESTED THAT PT AUSTEN MARTINEZ BE UPDATED TO THE RESULTS OF THE CT SCAN.
--- NOTE | 2020-05-13 19:00 | NUR ---
ASSUMED CARE NOTE: ASSUMED CARE OF PT AT 1900, RECEVIED REPORT FROM NEIL ROBBINS. PT IS ALERT AND ORIENTED TO SELF, FOLLOWING COMMANDS AND ANSWERING YES/NO QUESTIONS USING HEAD GEASTURES. PT IS ABLE TO MOUTH A FEW WORDS, UNABLE TO SPEAK DUE TO TRACH. PT RIGHT UPPER EXTREMITY FLACID, UNABLE TO MOVE. RIGHT LEG HAS SOME MOVEMENT, HOWEVER PT IS NOT ABLE TO MOVE IT ON COMMAND. RIGHT SIDED NEGLECT NOTED, STS SHE HAS NO FEELING TO RIGHT EXTREMITIES. PT IS ON VENT WITH SETTINGS AT PS 15, PEEP 12, FiO2 70% , SPO2 ABOVE 90% , RR BETWEEN 16-20. NO RESP DISTRESS NOTED. PT IN SINUS TACH W BBB, HR AT 110 PER MONITOR. PT DENIES ANY PAIN AT THIS TIME. BP STABLE WITH LEVOPHED RUNNING AT 4MCG/MIN. FARLEY PATENT, DRAINING TO GRAVITY. BED AT LOWEST LEVEL, CALL LIGHT WITHIN REACH.
--- NOTE | 2020-05-13 19:41 | NUR ---
STUART (SISTER) OF PATIENT WAS NOTIFED OF CT SCAN RESULTS BY DAYSHIFT NURSE. THIS NURSE INFORMED THE HOSPITALIST CARMELITA OF CT RESULTS REQUESTED BY .
[2020-05-14 06:07] LABS: BASOPHILS ABSOLUTE AUTO 0.03 K/mm3 (0.00-0.23); BASOPHILS PERCENT AUTO 0 % (0-2); EOSINOPHILS ABSOLUTE AUTO 0.06 K/mm3 (0.00-0.68); EOSINOPHILS PERCENT AUTO 0 % (0-6); Hematocrit 28.9 % (33.0-51.0); Hemoglobin 9.4 g/dL (11.5-16.0); IMMATURE GRAN ABSOLUTE AUTO 0.06 K/mm3 (0.00-0.10); IMMATURE GRAN PERCENT AUTO 0 % (0-1); LYMPHOCYTES ABSOLUTE AUTO 1.03 K/mm3 (0.84-5.20); LYMPHOCYTES PERCENT AUTO 8 % (21-46); MONOCYTES ABSOLUTE AUTO 0.31 K/mm3 (0.16-1.47); MONOCYTES PERCENT AUTO 2 % (4-13); Mean Corpuscular HGB 27.4 pg (26.0-34.0); Mean Corpuscular HGB Conc 32.5 g/dL (31.5-36.5); Mean Corpuscular Volume 84 fL (80-100); NEUTROPHILS ABSOLUTE AUTO 12.06 K/mm3 (1.96-9.15); NEUTROPHILS PERCENT AUTO 89 % (41-73); Platelet Count 184 K/mm3 (150-400); RDW Standard Deviation 48.9 fL (35.1-46.3); Red Blood Cell Count 3.43 M/mm3 (3.80-5.20); White Blood Cell Count 13.55 K/mm3 (4.00-11.30)
[2020-05-14 06:22] LABS: Anion Gap 7 mmol/L (6-16); Blood Urea Nitrogen 17 mg/dL (8-24); Bun/Creatinine Ratio 23.7 (12.0-20.0); CO2, Blood 26 mmol/L (21-32); Calcium, Blood 8.1 mg/dL (8.5-10.1); Chloride, Blood 103 mmol/L (98-108); Creatinine, Blood 0.72 mg/dL (0.40-1.00); Glomerular Filtration Rate >60 (60-); Glucose, Blood 127 mg/dL (70-99); Magnesium, Blood 2.1 mg/dL (1.6-2.4); Phosphorus, Blood 2.4 mg/dL (2.5-4.9); Potassium, Blood 3.7 mmol/L (3.5-5.5); Sodium, Blood 136 mmol/L (136-145)
--- NOTE | 2020-05-14 07:16 | NUR ---
SHIFT SUMMARY: NO SIGNIFICANT CHANGES T/O SHIFT. PT CONTINUES TO BE ALERT AND ORIENTED TO SELF AND ANSWERING QUESTIONS USING HEAD GEASTURES. SHE IS ABLE TO MOUTH A FEW WORDS TO MAKE HER NEEDS KNOWN. PT ON VENT WITH SETTINGS AT PS15/PEEP12/FiO2 65% NO RESP DISTRESS NOTED. PT HAS BEEN IN SINUS TACH WITH BBB, HR BETWEEN 90-115. LEVOPHED AT 6MCG/MIN, VASOPRESSIN ON SB. NO BM THIS SHIFT. FARLEY PATENT, DRAINING TO GRAVITY. CAME TO EVALUATE PT, PT AGREED TO TUBE FEEDS VIA DOBHOFF. REPORT GIVEN TO BRIANNE Fu RN.
--- NOTE | 2020-05-14 08:30 | NUR ---
ASSUMED CARE OF PT PT IS ALERT AND ORIENTED TO PERSON, LYING IN BED. APPROPRIATELY NODS HEAD YES OR NO. RIGHT SIDE EXTREMETIES FLACCID. PLAN FOR DOBHOFF PLACEMENT, WHICH PT AGREES TO. 6.[address], CONTECTED TO VENT WITH PS/12 FIO2 65%. PAULINA US COMPLETED THIS MORNING, PER US TECH REQUEST, BP OBTAINED ON BOTH SIDES. LEFT ARM BP CHECKED MULTIPLE TIMES AND CUFF SIZES CHANGED TO VERIFY, HOWEVER SYSTOLIC PRESSURE READ IN 50'S. RIGHT ARM BP CONTINUES TO MAINTAIN IN PREVIOUS RANGE. DR SESAY AND JOSE BOTH NOTIFIED OF FINDINGS. FARLEY IN PLACE TO GRAVITY DRAINING CLEAR YELLOW URINE.
[2020-05-14 11:40] LABS: Vancomycin, Trough 12.4 ug/mL (5.0-10.0)
--- NOTE | 2020-05-14 16:00 | NUR ---
REASSESSMENT PT IS ALERT, ORIENTED TO PERSON, FOLLOWS COMMANDS AND NODS YES OR NO APPROPRIATELY. NO CHANGE TO RIGHT SIDED DEFICITS. TUBE FEEDS VIA DOBHOFF INITIATED THIS AFTERNOON. PT'S SISTER WAS ABLE COME VISIT PT TODAY. LEVOPHED TITRATED BACK UP TO 6MCG/MIN TO MAINTAIN MAP >65. PS/12 ON VENT FIO2 @ 70%.
--- NOTE | 2020-05-14 18:30 | NUR ---
SHIFT SUMMARY PT IS ALERT AND ORIENTED TO PERSON, FOLLOWS COMMANDS, RESPONDS CORRECTLY BY NODING HEAD YES AND NO. RIGHT ARM FLACCID, RIGHT LEG RESPONDS TO PAINFUL STIMULI. PHYSICAL THERAPY WAS ABLE TO WORK WITH PT TODAY AND ABLE TO DANGLE FOR SHORT PERIOD OF TIME. DOBHOFF PLACED TODAY AND TUBE FEEDS STARTED THIS AFTERNOON. PT APPEARS TO BE TOLERATING. LEVOPHED REMAINS ON AT 6MCG/MIN, WAS ABLE TO TITRATE DOWN FOR A FEW HOURS TODAY TO 4MCG/MIN. PT REMAINS ON PS/12 ON VENT WITH TRACH, FIO2 AT 70%.
--- NOTE | 2020-05-14 19:00 | NUR ---
ASSUMED CARE NOTE: ASSUMED CARE OF PT AT 1900, RECEVIED REPORT FROM BRIANNE Fu RN. PT IS ALERT AND ORIENTED, PT IS ABLE TO ANSWER YES/NO QUESTIONS APPROPRIATLY. PT IS ON VENT WITH SETTINGS AT PS15/PEEP5/[id number]%, SPO2 ABOVE 90% PT IS IN SIT W/BBB, HR IN THE 110-115. PT DENIES ANY SOB/PAIN AT THIS TIME. BP STABLE WITH LEVOPHED AT 5MCG/MIN. DOBHOFF TUBE FEED RUNNING AT 25ML/HR. FARLEY PATNET DRAINING TO GRAVITY. BED AT LOWEST LEVEL. WILL CONTINUE TO MONITOR PT T/O SHIFT.
--- NOTE | 2020-05-14 19:16 | NUR ---
1845: PT SPO2 AT 82%, PT REPOSITIONED TO HIGH FOWLERS POSITION, FiO2 INCREASED TO 100%. SUCTIONED VIA TRACH, MINIMAL SECRETIONS NOTED. AFTER 15 MINUTES PT SPO2 93%, FiO2 AT 90% RT CALLED TO NOTIFY.
--- NOTE | 2020-05-15 03:34 | NUR ---
0300: PT SPO2 85% , WALKED INTO ROOM, LARGE AMOUNTS OF RED TRENT SECRETIONS FROM TRACH. 0329: CALLED REGARDING PT STATUS, ORDERS TO PLACE TO ON LEFT SIDE MUCH POSSIBLE. MANUALLY VENTALATING THE PT VIA AMBU BAG. SPO2 DECRESING INTO THE 70'S. PT VERY ANXIOUS. FAMILY NOTIFED, THEY ARE UNABLE TO COME AT THIS TIME. 0340: AUSTEN DAVIDSON TALKING TO REGARDING COMFORT CARE. SPO2 54% RT CONTINUES TO MANUALLY VENT PT.
--- NOTE | 2020-05-15 04:04 | NUR ---
0334. PT PLACED TO CC, ORDERS FOR MORPHINE GIVEN
--- NOTE | 2020-05-15 05:28 | NUR ---
TOD 0331. FAMILY AND PHYSICAN NOTIFED BY ROLAN LOZANO.
--- NOTE | 2020-05-15 05:32 | NUR ---
TOD 0431, ROLAN CHARGE NURSE NOTIFED FAMILY AND PHYSICANS.
== END 2020-05-15 05:00 | DRG 208 ==
LOC: ER 13:44 → MEDS 17:54 → ICUE 17:54 → MEDS 18:17 → PCU 05-02 15:52 → ICUE 05-12 11:57
PROVIDERS: Emergency Medicine; Family Medicine; Internal Medicine Critical Care Medicine; Pharmacist; Physician Assistant; Student in an Organized Health Care Education/Training Program; ADMIT Internal Medicine
PROC: 0BDJ4ZX Extraction of Left Lower Lung Lobe, Percutaneous Endoscopic Approach, Diagnostic (ICD-10-PCS; principal; 2020-05-03)
PROC: 3E03305 Introduction of Other Antineoplastic into Peripheral Vein, Percutaneous Approach (ICD-10-PCS; 2020-05-11)
PROC: 5A1945Z Respiratory Ventilation, 24-96 Consecutive Hours (ICD-10-PCS; 2020-05-12)
PROC: 02HV33Z Insertion of Infusion Device into Superior Vena Cava, Percutaneous Approach (ICD-10-PCS; 2020-05-12)
PROC: 3E043XZ Introduction of Vasopressor into Central Vein, Percutaneous Approach (ICD-10-PCS; 2020-05-12)
DX: J96.21 Acute and chronic respiratory failure with hypoxia (principal); I26.99 Other pulmonary embolism without acute cor pulmonale; I63.9 Cerebral infarction, unspecified; R65.20 Severe sepsis without septic shock; C34.32 Malignant neoplasm of lower lobe, left bronchus or lung; I50.22 Chronic systolic (congestive) heart failure; G81.91 Hemiplegia, unspecified affecting right dominant side; Z20.822 Contact with and (suspected) exposure to COVID-19; I95.9 Hypotension, unspecified; G62.9 Polyneuropathy, unspecified; K57.90 Diverticulosis of intestine, part unspecified, without perforation or abscess without bleeding; I11.0 Hypertensive heart disease with heart failure; E78.5 Hyperlipidemia, unspecified; I25.10 Atherosclerotic heart disease of native coronary artery without angina pectoris; I25.5 Ischemic cardiomyopathy; Z51.5 Encounter for palliative care; E87.6 Hypokalemia; D63.8 Anemia in other chronic diseases classified elsewhere; R94.39 Abnormal result of other cardiovascular function study; D72.829 Elevated white blood cell count, unspecified; T38.0X5A Adverse effect of glucocorticoids and synthetic analogues, initial encounter; Y92.239 Unspecified place in hospital as the place of occurrence of the external cause; Z66 Do not resuscitate; Z90.2 Acquired absence of lung [part of]; Z85.3 Personal history of malignant neoplasm of breast; Z87.891 Personal history of nicotine dependence; Z85.41 Personal history of malignant neoplasm of cervix uteri; Z93.0 Tracheostomy status; Z79.899 Other long term (current) drug therapy; Z79.01 Long term (current) use of anticoagulants; Z79.02 Long term (current) use of antithrombotics/antiplatelets; Z85.21 Personal history of malignant neoplasm of larynx
CPT/HCPCS: 0241U; 31720; 32408; 36415; 36569; 36600; 51702; 70470; 71045; 71260; 77012; 80048; 80053; 80069; 80202; 81001; 81003; 82803; 82947; 83605; 83735; 83880; 84100; 84145; 84484; 85007; 85025; 85027; 85610; 85730; 87040; 87070; 87205; 88305; 93005; 93010; 93306; 93308; 93321; 93356; 93880; 94002; 94003; 94640; 94760; 94761; 94762; 96365; 97110; 97112; 97161; 97164; 97165; 97166; 97168; 97530; 99285-25; A9270; C1751; J0692; J0713; J1644; J1940; J2060; J2270; J2405; J2543; J2920; J2930; J3370; J7050; J7060; J7120; J9264; Q9967